=== PATIENT | female | born 1950 | race Caucasian/White ===

== ENCOUNTER 2017-05-02 16:30 | Inpatient (IN) | payer OTHER ==
[~2017-05-02] VITALS: Ht 157.5 cm; Wt 77.1 kg
[2017-05-02 16:39] VITALS: BP_SYST 105
[2017-05-02] MEDS ORDERED: LEVOFLOXACIN 500 MG/D5W 100 ML IV ONE (17:00)
[2017-05-02] MEDS ORDERED: DILTIAZEM HCL 25 MG/5 ML VIAL IVP ONE (17:00)
[2017-05-02] MEDS ORDERED: ALBUTEROL SULFATE 0.083% 2.5 MG/3 ML VIAL.NEB INH ONE (17:00)
[2017-05-02] MEDS ORDERED: AMIN30LI2 PO (17:45)
[2017-05-02] MEDS ORDERED: GLUXR500 PO (17:45)
[2017-05-02] MEDS ORDERED: APIX5TAB PO (17:45)
[2017-05-02] MEDS ORDERED: ALBU2.5V7 INH (17:45)
[2017-05-02] MEDS ORDERED: ACET-1010 PO (17:45)
[2017-05-02] MEDS ORDERED: CYAN250014 PO (17:45)
[2017-05-02] MEDS ORDERED: VITD2000 PO (17:45)
[2017-05-02] MEDS ORDERED: MAGN400O4 PO (17:45)
[2017-05-02] MEDS ORDERED: MULT PO (17:45)
[2017-05-02] MEDS ORDERED: BIOT5000 PO (17:45)
[2017-05-02] MEDS ORDERED: FUROSEMIDE 40 MG/4 ML VIAL IVP ONE (18:00)
[2017-05-02] MEDS ORDERED: DILTIAZEM HCL 125 MG/25 ML VIAL IV ONE (18:13)
[2017-05-02] MEDS ORDERED: MORPHINE 2 MG/ML INJ. SYRINGE ONE (19:09)
[2017-05-02] MEDS ORDERED: DIPHENHYDRAMINE INJ 50 MG/ML VIAL ONE (19:10)
[2017-05-02] MEDS ORDERED: DIPHENHYDRAMINE INJ 50 MG/ML VIAL IVP ONE (19:15)
[2017-05-02] MEDS ORDERED: MORPHINE 2 MG/ML INJ. SYRINGE IVP ONE ×2 (19:15→20:45)
[2017-05-02 20:27] LABS: BILIRUBIN,URINE NEGATIVE (NEGATIVE); BLOOD, URINE 2+ (NEGATIVE); CLARITY/URINE SL CLOUDY (CLEAR); COLOR,URINE YELLOW (YELLOW); GLUCOSE,URINE NEGATIVE (NEGATIVE); KETONES,URINE NEGATIVE (NEGATIVE); LEUKOCYTE ESTERASE ,URINE 2+ (NEGATIVE); NITRITE, URINE NEGATIVE (NEGATIVE); PROTEIN URINE NEGATIVE (NEGATIVE); UROBILINOGEN,URINE 0.2 (0.2-1.0)
[2017-05-02 20:55] LABS: BACTERIA,URINE MANY /HPF (None Seen); CALCIUM OXALATE CRYSTALS,UR 0-10 /HPF (None Seen); WBC,URINE 80-100 /HPF (0-3)
[2017-05-02 20:56] LABS: MUCUS,URINE 2+ /LPF (None Seen)
[2017-05-02 21:11] LABS: HEMATOCRIT 45.2 % (36-48); HEMOGLOBIN 14.9 g/dL (12.0-16.0); MEAN CORPUSCULAR HEMOGLOBIN 33 pg (27-31); MEAN CORPUSCULAR HGB CONC 33 % (32-36); MEAN CORPUSCULAR VOLUME 100 fL (79.0-98.0); PLATELET COUNT (AUTO) 463 K/uL (130-430); RED BLOOD CELL COUNT(AUTO) 4.51 MIL/uL (4.2-6.2); RED CELL DISTRIBUTION WIDTH 19.4 % (9.0-15.0); WHITE BLOOD COUNT (AUTO) 15.9 K/uL (4.8-10.8)
[2017-05-02 21:28] LABS: INR 1.4 (0.8-1.2)
[2017-05-02] MEDS ORDERED: NACL 0.9% 1,000 ML IV ONE ×3 (21:45→23:00)
[2017-05-02 21:55] LABS: BAND % (MANUAL) 4 % (0-6); BASOPHILS % (MANUAL) 0 % (0-2); CALCIUM 9.8 mg/dL (8.4-11.0); CREATININE 0.82 mg/dL (0.55-1.30); EOSINOPHILS % (MANUAL) 1 % (0-7); LYMPHOCYTES % (MANUAL) 2 % (20-46); MONOCYTES % (MANUAL) 3 % (0-11); POTASSIUM 4.2 mmol/L (3.5-5.1)
[2017-05-02 22:09] LABS: ALBUMIN 2.7 g/dL (3.4-4.8); THYROID STIMULATING HORMONE 0.88 uIu/mL (0.34-4.82); TOTAL BILIRUBIN 0.7 mg/dL (0.0-1.0)
[2017-05-02] MEDS ORDERED: ASPIRIN 81 MG TAB.CHEW PO ONE (22:45)
[2017-05-02] MEDS ORDERED: GENTAMICIN 120 mg/100 mL NS 100 ML IV ONE (23:30)
[2017-05-02] MEDS ORDERED: NACL 0.9% 1,000 ML IV SCH (23:30)
[2017-05-02] MEDS ORDERED: DIGOXIN 0.5 MG/2 ML AMP IVP ONE (23:30)
[2017-05-02] MEDS ORDERED: DILTIAZEM HCL 25 MG/5 ML VIAL IVP PRN (23:30)
[2017-05-03] VITALS (9 sets, daily range): BP systolic 106–148
[2017-05-03] MEDS ORDERED: GENTAMICIN 120 mg/100 mL NS 100 ML IV ONE (01:24)
[2017-05-03] MEDS ORDERED: LevALBUTEROL HCL 1.25 MG/0.5 ML *CONC.* VIAL.NEB (XOPENEX CONC.) INH PRN (03:30)
[2017-05-03] MEDS ORDERED: methylPREDNISolone SOD SUCC/PF 62.5 MG/ML VIAL IVP ONE (03:45)
[2017-05-03] MEDS ORDERED: FUROSEMIDE 20 MG/2 ML VIAL IVP ONE (03:45)
[2017-05-03 07:15] LABS: BASOPHILS # (AUTO) 0.2 K/uL (0.0-0.2); EOSINOPHILS # (AUTO) 0.6 K/uL (0.0-0.4); EOSINOPHILS % (AUTO) 2.9 % (0.0-4.0); HEMATOCRIT 41.6 % (36-48); HEMOGLOBIN 14.1 g/dL (12.0-16.0); LYMPHOCYTES # (AUTO) 0.4 K/uL (1.0-5.5); LYMPHOCYTES % (AUTO) 2.3 % (20.5-51.5); MEAN CORPUSCULAR HEMOGLOBIN 34 pg (27-31); MEAN CORPUSCULAR HGB CONC 34 % (32-36); MEAN CORPUSCULAR VOLUME 100 fL (79.0-98.0); MONOCYTES # (AUTO) 0.5 K/uL (0.0-1.0); MONOCYTES % (AUTO) 2.6 % (1.7-9.3); NEUTROPHILS # (AUTO) 17.8 K/uL (1.8-7.7); NEUTROPHILS % (AUTO) 91.2 % (40.0-70.0); PLATELET COUNT (AUTO) 457 K/uL (130-430); RED BLOOD CELL COUNT(AUTO) 4.15 MIL/uL (4.2-6.2); WHITE BLOOD COUNT (AUTO) 19.5 K/uL (4.8-10.8)
[2017-05-03 07:34] LABS: CREATININE 0.58 mg/dL (0.55-1.30)
[2017-05-03 07:35] LABS: ALBUMIN 2.4 g/dL (3.4-4.8); TOTAL BILIRUBIN 0.7 mg/dL (0.0-1.0)
[2017-05-03] MEDS ORDERED: AZITHROMYCIN 500 MG in NS 250 ML IV SCH (10:30)
[2017-05-03] MEDS ORDERED: APIXABAN 2.5 MG TABLET PO ONE (10:30)
[2017-05-03] MEDS ORDERED: DEXTROSE 50% JECT 50 ML DISP.SYRIN IVP PRN (11:00)
[2017-05-03] MEDS ORDERED: LEVOFLOXACIN 500 MG/D5W 100 ML IV ONE (11:00)
[2017-05-03] MEDS: INSULIN REGULAR, HUMAN 100 UNITS/ML, 10 ML VIAL (novoLIN R) SUBCUT PRN ×2 (11:25→16:59)
[2017-05-03] MEDS ORDERED: CARVEDILOL 3.125 MG TABLET (COREG) PO ONE (11:45)
[2017-05-03] MEDS ORDERED: GENTAMICIN SULFATE 160 MG in NS 100 ML IV SCH (12:00)
[2017-05-03] MEDS ORDERED: APIXABAN 2.5 MG TABLET PO SCH (21:00)
[2017-05-03] MEDS: APIXABAN 2.5 MG TABLET PO SCH (21:53)
[2017-05-03] MEDS: CARVEDILOL 3.125 MG TABLET (COREG) PO SCH (21:54)
[2017-05-03] MEDS: metroNIDAZOLE 250 mg/NS 50 ML IV SCH (21:54)
[2017-05-04] VITALS: BP_SYST 136
[2017-05-04] MEDS: metroNIDAZOLE 250 mg/NS 50 ML IV SCH ×3 (05:31→23:29)
[2017-05-04 06:49] LABS: BASOPHILS % (AUTO) 0.4 % (0.0-2.0); HEMATOCRIT 39.3 % (36-48); HEMOGLOBIN 13.2 g/dL (12.0-16.0); LYMPHOCYTES # (AUTO) 0.4 K/uL (1.0-5.5); LYMPHOCYTES % (AUTO) 3.3 % (20.5-51.5); MEAN CORPUSCULAR HEMOGLOBIN 34 pg (27-31); MEAN CORPUSCULAR HGB CONC 34 % (32-36); MEAN CORPUSCULAR VOLUME 100 fL (79.0-98.0); MONOCYTES # (AUTO) 0.3 K/uL (0.0-1.0); MONOCYTES % (AUTO) 2.6 % (1.7-9.3); NEUTROPHILS % (AUTO) 93.7 % (40.0-70.0); RED BLOOD CELL COUNT(AUTO) 3.94 MIL/uL (4.2-6.2); RED CELL DISTRIBUTION WIDTH 19.5 % (9.0-15.0); WHITE BLOOD COUNT (AUTO) 11.7 K/uL (4.8-10.8)
[2017-05-04 07:35] LABS: ALBUMIN 2.3 g/dL (3.4-4.8); CALCIUM 9.1 mg/dL (8.4-11.0); CREATININE 0.54 mg/dL (0.55-1.30); FREE T4 (FREE THYROXINE) 1.1 ng/dL (0.6-1.6); POTASSIUM 3.4 mmol/L (3.5-5.1); TOTAL BILIRUBIN 0.6 mg/dL (0.0-1.0)
[2017-05-04 08:14] VITALS: BP_SYST 135
[2017-05-04] MEDS: APIXABAN 2.5 MG TABLET PO SCH ×2 (08:22→22:01)
[2017-05-04] MEDS: CARVEDILOL 3.125 MG TABLET (COREG) PO SCH ×2 (08:22→22:07)
[2017-05-04] MEDS ORDERED: LEVOFLOXACIN 500 MG/D5W 100 ML IV SCH (09:00)
[2017-05-04 12:02] VITALS: BP_SYST 146
[2017-05-04] MEDS: ACETAMINOPHEN 325 MG TABLET PO PRN (12:08)
[2017-05-04] MEDS ORDERED: PREDNISONE 10 MG TABLET ONE ×2 (12:16→12:31)
[2017-05-04] MEDS ORDERED: PREDNISONE 5 MG TABLET ONE (12:16)
[2017-05-04] MEDS: INSULIN REGULAR, HUMAN 100 UNITS/ML, 10 ML VIAL (novoLIN R) SUBCUT PRN ×3 (12:18→22:47)
[2017-05-04] MEDS: PREDNISONE 10 MG TABLET PO SCH (12:19)
[2017-05-04] MEDS ORDERED: POTASSIUM CHLORIDE 20 MEQ TAB.PRT.SR PO ONE (14:00)
[2017-05-04 14:11] LABS: PLATELET COUNT (AUTO) 460 K/uL (130-430)
[2017-05-04 16:16] VITALS: BP_SYST 159
[2017-05-04] MEDS ORDERED: DILTIAZEM HCL 60 MG TABLET PO ONE (17:15)
[2017-05-04 19:02] LABS: BILIRUBIN,URINE NEGATIVE (NEGATIVE); BLOOD, URINE 3+ (NEGATIVE); CLARITY/URINE CLOUDY (CLEAR); COLOR,URINE BROWN (YELLOW); GLUCOSE,URINE NEGATIVE (NEGATIVE); KETONES,URINE TRACE (NEGATIVE); LEUKOCYTE ESTERASE ,URINE 1+ (NEGATIVE); NITRITE, URINE POSITIVE (NEGATIVE); PH,URINE 6.5 (5.0-8.0); PROTEIN URINE 3+ (NEGATIVE)
[2017-05-04 19:12] LABS: RBC,URINE >100 /HPF (0-3)
[2017-05-04 19:13] LABS: BACTERIA,URINE FEW /HPF (None Seen); WBC,URINE >100 /HPF (0-3)
[2017-05-04 19:40] VITALS: BP_SYST 143
[2017-05-04] MEDS: DILTIAZEM HCL 60 MG TABLET PO SCH (22:05)
[2017-05-04] MEDS ORDERED: CEFEPIME 1 GM/VIAL (MAXIPIME) ONE (22:11)
[2017-05-04] MEDS: CEFEPIME 1 GM in D5W 50 ML IV SCH (22:47)
[2017-05-05 00:22] VITALS: BP_SYST 117
[2017-05-05] MEDS: ACETAMINOPHEN 325 MG TABLET PO PRN (04:22)
[2017-05-05] MEDS: metroNIDAZOLE 250 mg/NS 50 ML IV SCH ×3 (06:20→22:27)
[2017-05-05] MEDS: DILTIAZEM HCL 60 MG TABLET PO SCH ×3 (06:21→21:34)
[2017-05-05 07:25] LABS: BASOPHILS % (AUTO) 0.2 % (0.0-2.0); EOSINOPHILS # (AUTO) 0.1 K/uL (0.0-0.4); EOSINOPHILS % (AUTO) 0.4 % (0.0-4.0); HEMOGLOBIN 12.6 g/dL (12.0-16.0); LYMPHOCYTES # (AUTO) 0.4 K/uL (1.0-5.5); LYMPHOCYTES % (AUTO) 2.9 % (20.5-51.5); MEAN CORPUSCULAR HEMOGLOBIN 33 pg (27-31); MEAN CORPUSCULAR HGB CONC 33 % (32-36); MEAN CORPUSCULAR VOLUME 99 fL (79.0-98.0); MONOCYTES # (AUTO) 0.1 K/uL (0.0-1.0); MONOCYTES % (AUTO) 0.5 % (1.7-9.3); NEUTROPHILS # (AUTO) 12.5 K/uL (1.8-7.7); PLATELET COUNT (AUTO) 466 K/uL (130-430); RED BLOOD CELL COUNT(AUTO) 3.83 MIL/uL (4.2-6.2); RED CELL DISTRIBUTION WIDTH 19.7 % (9.0-15.0); WHITE BLOOD COUNT (AUTO) 13.1 K/uL (4.8-10.8)
[2017-05-05 07:28] LABS: CALCIUM 9.6 mg/dL (8.4-11.0); CREATININE 0.48 mg/dL (0.55-1.30); POTASSIUM 3.7 mmol/L (3.5-5.1)
[2017-05-05 09:25] VITALS: BP_SYST 147
[2017-05-05] MEDS: APIXABAN 2.5 MG TABLET PO SCH ×2 (09:29→21:34)
[2017-05-05] MEDS: PREDNISONE 10 MG TABLET PO SCH (09:29)
[2017-05-05] MEDS: CARVEDILOL 3.125 MG TABLET (COREG) PO SCH ×2 (09:30→21:33)
[2017-05-05] MEDS: CEFEPIME 1 GM in D5W 50 ML IV SCH (09:31)
[2017-05-05] MEDS: INSULIN REGULAR, HUMAN 100 UNITS/ML, 10 ML VIAL (novoLIN R) SUBCUT PRN ×2 (11:52→17:17)
[2017-05-05 11:58] VITALS: BP_SYST 129
[2017-05-05 16:33] VITALS: BP_SYST 122
[2017-05-05] MEDS: CEFTAZIDIME 1 GM in D5W 50 ML IV SCH ×2 (18:45→21:32)
[2017-05-05 20:02] VITALS: BP_SYST 126
[2017-05-06] VITALS (7 sets, daily range): BP systolic 126–148
[2017-05-06] MEDS: ACETAMINOPHEN 325 MG TABLET PO PRN ×3 (02:12→22:13)
[2017-05-06] MEDS: DILTIAZEM HCL 60 MG TABLET PO SCH ×3 (05:17→22:11)
[2017-05-06] MEDS: CEFTAZIDIME 1 GM in D5W 50 ML IV SCH ×3 (05:18→22:10)
[2017-05-06] MEDS: metroNIDAZOLE 250 mg/NS 50 ML IV SCH (05:53)
[2017-05-06 07:02] LABS: BASOPHILS % (AUTO) 0.1 % (0.0-2.0); EOSINOPHILS # (AUTO) 0.6 K/uL (0.0-0.4); HEMATOCRIT 37.1 % (36-48); HEMOGLOBIN 12.6 g/dL (12.0-16.0); LYMPHOCYTES # (AUTO) 0.8 K/uL (1.0-5.5); LYMPHOCYTES % (AUTO) 6.1 % (20.5-51.5); MEAN CORPUSCULAR HEMOGLOBIN 34 pg (27-31); MEAN CORPUSCULAR HGB CONC 34 % (32-36); MEAN CORPUSCULAR VOLUME 99 fL (79.0-98.0); MONOCYTES # (AUTO) 0.1 K/uL (0.0-1.0); NEUTROPHILS # (AUTO) 11.2 K/uL (1.8-7.7); NEUTROPHILS % (AUTO) 87.8 % (40.0-70.0); PLATELET COUNT (AUTO) 430 K/uL (130-430); RED BLOOD CELL COUNT(AUTO) 3.77 MIL/uL (4.2-6.2); RED CELL DISTRIBUTION WIDTH 19.5 % (9.0-15.0); WHITE BLOOD COUNT (AUTO) 12.7 K/uL (4.8-10.8)
[2017-05-06 07:09] LABS: CALCIUM 9.8 mg/dL (8.4-11.0); CREATININE 0.51 mg/dL (0.55-1.30); POTASSIUM 3.6 mmol/L (3.5-5.1)
[2017-05-06] MEDS: PREDNISONE 10 MG TABLET PO SCH (08:26)
[2017-05-06] MEDS: APIXABAN 2.5 MG TABLET PO SCH ×2 (08:26→20:16)
[2017-05-06] MEDS: CARVEDILOL 3.125 MG TABLET (COREG) PO SCH ×2 (08:27→20:16)
[2017-05-06] MEDS: INSULIN REGULAR, HUMAN 100 UNITS/ML, 10 ML VIAL (novoLIN R) SUBCUT PRN ×2 (17:13→20:23)
[2017-05-07] MEDS: CEFTAZIDIME 1 GM in D5W 50 ML IV SCH ×3 (06:09→21:36)
[2017-05-07] MEDS: DILTIAZEM HCL 60 MG TABLET PO SCH ×3 (06:16→21:35)
[2017-05-07 09:20] VITALS: BP_SYST 141
[2017-05-07] MEDS: CARVEDILOL 3.125 MG TABLET (COREG) PO SCH ×2 (09:24→21:34)
[2017-05-07] MEDS: PREDNISONE 10 MG TABLET PO SCH (09:24)
[2017-05-07] MEDS: APIXABAN 2.5 MG TABLET PO SCH ×2 (09:24→21:32)
[2017-05-07 12:00] VITALS: BP_SYST 130
[2017-05-07 16:00] VITALS: BP_SYST 131
[2017-05-07] MEDS: INSULIN REGULAR, HUMAN 100 UNITS/ML, 10 ML VIAL (novoLIN R) SUBCUT PRN (17:40)
[2017-05-07 20:10] VITALS: BP_SYST 158
[2017-05-07] MEDS: CITALOPRAM HYDROBROMIDE 20 MG TABLET PO SCH (21:00)
[2017-05-07 23:39] VITALS: BP_SYST 143
[2017-05-08] MEDS: ACETAMINOPHEN 325 MG TABLET PO PRN ×2 (01:03→08:57)
[2017-05-08] MEDS: CEFTAZIDIME 1 GM in D5W 50 ML IV SCH ×3 (05:58→22:09)
[2017-05-08] MEDS: DILTIAZEM HCL 60 MG TABLET PO SCH ×3 (06:00→20:17)
[2017-05-08 07:52] LABS: HEMATOCRIT 38.8 % (36-48); HEMOGLOBIN 12.7 g/dL (12.0-16.0); MEAN CORPUSCULAR HEMOGLOBIN 32 pg (27-31); MEAN CORPUSCULAR HGB CONC 33 % (32-36); MEAN CORPUSCULAR VOLUME 98 fL (79.0-98.0); PLATELET COUNT (AUTO) 404 K/uL (130-430); RED BLOOD CELL COUNT(AUTO) 3.95 MIL/uL (4.2-6.2); RED CELL DISTRIBUTION WIDTH 19.2 % (9.0-15.0)
[2017-05-08 08:00] VITALS: BP_SYST 137
[2017-05-08 08:08] LABS: CALCIUM 9.6 mg/dL (8.4-11.0); CREATININE 0.54 mg/dL (0.55-1.30)
[2017-05-08 08:17] LABS: POTASSIUM 2.8 mmol/L (3.5-5.1); TOTAL BILIRUBIN 0.6 mg/dL (0.0-1.0)
[2017-05-08 08:18] LABS: ALBUMIN 2.1 g/dL (3.4-4.8)
[2017-05-08] MEDS: APIXABAN 2.5 MG TABLET PO SCH ×2 (08:54→20:16)
[2017-05-08] MEDS: PREDNISONE 10 MG TABLET PO SCH (08:54)
[2017-05-08] MEDS: CARVEDILOL 3.125 MG TABLET (COREG) PO SCH (08:55)
[2017-05-08] MEDS ORDERED: POTASSIUM CHLORIDE 20 MEQ TAB.PRT.SR PO ONE (09:15)
[2017-05-08] MEDS ORDERED: POTASSIUM CHLORIDE 40 MEQ, LIDOCAINE JECT 2% PF 100 MG 50 MG in NS 250 ML IV ONE (10:00)
[2017-05-08 10:34] LABS: BASOPHILS % (MANUAL) 0 % (0-2); EOSINOPHILS % (MANUAL) 9 % (0-7); LYMPHOCYTES % (MANUAL) 6 % (20-46); MONOCYTES % (MANUAL) 3 % (0-11)
[2017-05-08] MEDS ORDERED: FUROSEMIDE 20 MG/2 ML VIAL IVP ONE (11:45)
[2017-05-08 12:50] VITALS: BP_SYST 123
[2017-05-08 17:14] VITALS: BP_SYST 119
[2017-05-08] MEDS ORDERED: FUROSEMIDE 40 MG/4 ML VIAL IVP ONE (17:30)
[2017-05-08] MEDS: VANCOMYCIN HCL 1,000 MG in NS 250 ML IV SCH (17:51)
[2017-05-08] MEDS: INSULIN REGULAR, HUMAN 100 UNITS/ML, 10 ML VIAL (novoLIN R) SUBCUT PRN ×2 (17:54→20:14)
[2017-05-08 20:00] VITALS: BP_SYST 146
[2017-05-08] MEDS: POTASSIUM CHLORIDE 20 MEQ TAB.PRT.SR PO SCH (20:16)
[2017-05-08] MEDS: CARVEDILOL 12.5 MG TABLET (COREG) PO SCH (20:17)
[2017-05-08] MEDS: CITALOPRAM HYDROBROMIDE 20 MG TABLET PO SCH (20:18)
[2017-05-08] MEDS: metroNIDAZOLE 250 mg/NS 50 ML IV SCH (21:05)
[2017-05-08 23:34] VITALS: BP_SYST 113
[2017-05-09] MEDS: DILTIAZEM HCL 60 MG TABLET PO SCH ×4 (02:02→20:36)
[2017-05-09] MEDS: CEFTAZIDIME 1 GM in D5W 50 ML IV SCH ×3 (05:02→21:37)
[2017-05-09] MEDS: metroNIDAZOLE 250 mg/NS 50 ML IV SCH ×3 (05:29→22:09)
[2017-05-09] MEDS: VANCOMYCIN HCL 1,000 MG in NS 250 ML IV SCH ×2 (06:35→18:24)
[2017-05-09 07:22] LABS: BASOPHILS % (AUTO) 0.2 % (0.0-2.0); EOSINOPHILS # (AUTO) 1.4 K/uL (0.0-0.4); EOSINOPHILS % (AUTO) 6.2 % (0.0-4.0); HEMATOCRIT 40.6 % (36-48); HEMOGLOBIN 13.3 g/dL (12.0-16.0); LYMPHOCYTES % (AUTO) 4.4 % (20.5-51.5); MEAN CORPUSCULAR HEMOGLOBIN 33 pg (27-31); MEAN CORPUSCULAR HGB CONC 33 % (32-36); MEAN CORPUSCULAR VOLUME 100 fL (79.0-98.0); MONOCYTES # (AUTO) 1.1 K/uL (0.0-1.0); MONOCYTES % (AUTO) 5.1 % (1.7-9.3); NEUTROPHILS # (AUTO) 18.5 K/uL (1.8-7.7); NEUTROPHILS % (AUTO) 84.1 % (40.0-70.0); PLATELET COUNT (AUTO) 403 K/uL (130-430); RED BLOOD CELL COUNT(AUTO) 4.08 MIL/uL (4.2-6.2); RED CELL DISTRIBUTION WIDTH 19.4 % (9.0-15.0)
[2017-05-09 07:29] LABS: CALCIUM 9.7 mg/dL (8.4-11.0); CREATININE 0.48 mg/dL (0.55-1.30); POTASSIUM 3.7 mmol/L (3.5-5.1)
[2017-05-09 08:00] VITALS: BP_SYST 131
[2017-05-09] MEDS: POTASSIUM CHLORIDE 20 MEQ TAB.PRT.SR PO SCH ×2 (08:10→20:37)
[2017-05-09] MEDS: CARVEDILOL 12.5 MG TABLET (COREG) PO SCH ×2 (08:11→20:37)
[2017-05-09] MEDS: APIXABAN 2.5 MG TABLET PO SCH ×2 (08:11→20:37)
[2017-05-09] MEDS: PREDNISONE 10 MG TABLET PO SCH (08:11)
[2017-05-09] MEDS: INSULIN REGULAR, HUMAN 100 UNITS/ML, 10 ML VIAL (novoLIN R) SUBCUT PRN ×3 (11:38→21:36)
[2017-05-09 12:24] VITALS: BP_SYST 120
[2017-05-09] MEDS ORDERED: FUROSEMIDE 20 MG TABLET PO ONE (13:15)
[2017-05-09] MEDS ORDERED: DIGOXIN 0.5 MG/2 ML AMP IVP ONE (15:00)
[2017-05-09 16:31] VITALS: BP_SYST 133
[2017-05-09 18:23] VITALS: BP_SYST 133
[2017-05-09 20:22] VITALS: BP_SYST 129
[2017-05-09] MEDS: ACETAMINOPHEN 325 MG TABLET PO PRN (20:38)
[2017-05-09] MEDS: CITALOPRAM HYDROBROMIDE 20 MG TABLET PO SCH (20:39)
[2017-05-09 23:50] VITALS: BP_SYST 126
[2017-05-10] MEDS: DILTIAZEM HCL 60 MG TABLET PO SCH ×4 (02:27→20:14)
[2017-05-10] MEDS: CEFTAZIDIME 1 GM in D5W 50 ML IV SCH ×3 (05:05→21:35)
[2017-05-10] MEDS: metroNIDAZOLE 250 mg/NS 50 ML IV SCH ×2 (06:09→16:57)
[2017-05-10] MEDS: ACETAMINOPHEN 325 MG TABLET PO PRN ×2 (06:43→15:15)
[2017-05-10 07:22] LABS: CALCIUM 10.4 mg/dL (8.4-11.0); CREATININE 0.67 mg/dL (0.55-1.30); POTASSIUM 3.6 mmol/L (3.5-5.1)
[2017-05-10 07:31] LABS: HEMATOCRIT 42.9 % (36-48); HEMOGLOBIN 14.3 g/dL (12.0-16.0); MEAN CORPUSCULAR HEMOGLOBIN 33 pg (27-31); MEAN CORPUSCULAR HGB CONC 33 % (32-36); MEAN CORPUSCULAR VOLUME 99 fL (79.0-98.0); PLATELET COUNT (AUTO) 467 K/uL (130-430); RED BLOOD CELL COUNT(AUTO) 4.34 MIL/uL (4.2-6.2); RED CELL DISTRIBUTION WIDTH 18.9 % (9.0-15.0)
[2017-05-10] MEDS: VANCOMYCIN HCL 1,000 MG in NS 250 ML IV SCH ×2 (07:31→17:37)
[2017-05-10 07:40] LABS: WHITE BLOOD COUNT (AUTO) 28.4 K/uL (4.8-10.8)
[2017-05-10 08:56] VITALS: BP_SYST 166
[2017-05-10] MEDS ORDERED: FUROSEMIDE 20 MG TABLET PO SCH (09:00)
[2017-05-10] MEDS: APIXABAN 2.5 MG TABLET PO SCH ×2 (09:04→20:13)
[2017-05-10] MEDS: PREDNISONE 10 MG TABLET PO SCH (09:04)
[2017-05-10] MEDS: POTASSIUM CHLORIDE 20 MEQ TAB.PRT.SR PO SCH ×2 (09:04→20:13)
[2017-05-10] MEDS: DIGOXIN 0.125 MG TABLET PO SCH (09:07)
[2017-05-10] MEDS: CARVEDILOL 12.5 MG TABLET (COREG) PO SCH ×2 (09:07→20:13)
[2017-05-10 10:23] LABS: ATYPICAL LYMPHOCYTES % 0 % (0-0); BAND % (MANUAL) 0 % (0-6); BASOPHILS % (MANUAL) 0 % (0-2); EOSINOPHILS % (MANUAL) 6 % (0-7); LYMPHOCYTES % (MANUAL) 8 % (20-46); MONOCYTES % (MANUAL) 4 % (0-11)
[2017-05-10 12:15] VITALS: BP_SYST 122
[2017-05-10] MEDS ORDERED: SPIRONOLACTONE 25 MG TABLET (ALDACTONE) PO ONE (14:45)
[2017-05-10 16:02] VITALS: BP_SYST 114
[2017-05-10] MEDS: INSULIN REGULAR, HUMAN 100 UNITS/ML, 10 ML VIAL (novoLIN R) SUBCUT PRN (17:34)
[2017-05-10 20:10] VITALS: BP_SYST 114
[2017-05-10] MEDS: FUROSEMIDE 20 MG TABLET PO SCH (20:14)
[2017-05-10] MEDS: CITALOPRAM HYDROBROMIDE 20 MG TABLET PO SCH (20:15)
[2017-05-10] MEDS: SPIRONOLACTONE 25 MG TABLET (ALDACTONE) PO SCH (20:15)
[2017-05-11] MEDS: metroNIDAZOLE 250 mg/NS 50 ML IV SCH ×3 (00:21→16:25)
[2017-05-11 01:08] VITALS: BP_SYST 111
[2017-05-11] MEDS: DILTIAZEM HCL 60 MG TABLET PO SCH ×4 (01:33→20:41)
[2017-05-11] MEDS: ACETAMINOPHEN 325 MG TABLET PO PRN ×3 (03:33→20:43)
[2017-05-11] MEDS: CEFTAZIDIME 1 GM in D5W 50 ML IV SCH ×3 (05:27→21:18)
[2017-05-11] MEDS: VANCOMYCIN HCL 1,000 MG in NS 250 ML IV SCH ×2 (06:08→17:25)
[2017-05-11 07:22] LABS: BASOPHILS # (AUTO) 0.4 K/uL (0.0-0.2); BASOPHILS % (AUTO) 1.5 % (0.0-2.0); EOSINOPHILS # (AUTO) 1.7 K/uL (0.0-0.4); EOSINOPHILS % (AUTO) 6.6 % (0.0-4.0); HEMATOCRIT 40.6 % (36-48); HEMOGLOBIN 13.9 g/dL (12.0-16.0); MEAN CORPUSCULAR HEMOGLOBIN 34 pg (27-31); MEAN CORPUSCULAR HGB CONC 34 % (32-36); MEAN CORPUSCULAR VOLUME 99 fL (79.0-98.0); MONOCYTES % (AUTO) 7.8 % (1.7-9.3); NEUTROPHILS % (AUTO) 80.1 % (40.0-70.0); PLATELET COUNT (AUTO) 449 K/uL (130-430); RED BLOOD CELL COUNT(AUTO) 4.12 MIL/uL (4.2-6.2); RED CELL DISTRIBUTION WIDTH 18.9 % (9.0-15.0); WHITE BLOOD COUNT (AUTO) 25.1 K/uL (4.8-10.8)
[2017-05-11 07:37] LABS: CALCIUM 10.4 mg/dL (8.4-11.0); CREATININE 0.66 mg/dL (0.55-1.30); POTASSIUM 3.5 mmol/L (3.5-5.1)
[2017-05-11 08:00] VITALS: BP_SYST 121
[2017-05-11] MEDS: PREDNISONE 10 MG TABLET PO SCH (08:41)
[2017-05-11] MEDS: POTASSIUM CHLORIDE 20 MEQ TAB.PRT.SR PO SCH ×2 (08:42→20:41)
[2017-05-11] MEDS: DIGOXIN 0.125 MG TABLET PO SCH (08:46)
[2017-05-11] MEDS: APIXABAN 2.5 MG TABLET PO SCH ×2 (08:46→20:41)
[2017-05-11] MEDS: SPIRONOLACTONE 25 MG TABLET (ALDACTONE) PO SCH (08:47)
[2017-05-11] MEDS: FUROSEMIDE 20 MG TABLET PO SCH ×2 (08:48→20:42)
[2017-05-11] MEDS: CARVEDILOL 12.5 MG TABLET (COREG) PO SCH ×2 (08:48→20:41)
[2017-05-11 12:40] VITALS: BP_SYST 138
[2017-05-11] MEDS: INSULIN REGULAR, HUMAN 100 UNITS/ML, 10 ML VIAL (novoLIN R) SUBCUT PRN (16:24)
[2017-05-11 17:06] VITALS: BP_SYST 126
[2017-05-11 20:37] VITALS: BP_SYST 167
[2017-05-11] MEDS: SPIRONOLACTONE 50 MG TABLET (ALDACTONE) PO SCH (20:42)
[2017-05-11] MEDS: CITALOPRAM HYDROBROMIDE 20 MG TABLET PO SCH (20:44)
[2017-05-12 00:03] VITALS: BP_SYST 105
[2017-05-12] MEDS: metroNIDAZOLE 250 mg/NS 50 ML IV SCH ×3 (00:24→17:00)
[2017-05-12] MEDS: DILTIAZEM HCL 60 MG TABLET PO SCH ×4 (02:07→20:36)
[2017-05-12] MEDS: CEFTAZIDIME 1 GM in D5W 50 ML IV SCH ×2 (05:33→13:49)
[2017-05-12] MEDS: ACETAMINOPHEN 325 MG TABLET PO PRN ×4 (05:38→23:50)
[2017-05-12] MEDS: VANCOMYCIN HCL 1,000 MG in NS 250 ML IV SCH (06:08)
[2017-05-12 07:09] LABS: CALCIUM 10.7 mg/dL (8.4-11.0); CREATININE 0.67 mg/dL (0.55-1.30); POTASSIUM 4.3 mmol/L (3.5-5.1)
[2017-05-12 07:15] LABS: BASOPHILS # (AUTO) 0.2 K/uL (0.0-0.2); BASOPHILS % (AUTO) 1.1 % (0.0-2.0); EOSINOPHILS # (AUTO) 1.3 K/uL (0.0-0.4); EOSINOPHILS % (AUTO) 5.8 % (0.0-4.0); HEMATOCRIT 42.4 % (36-48); HEMOGLOBIN 14.3 g/dL (12.0-16.0); LYMPHOCYTES # (AUTO) 0.8 K/uL (1.0-5.5); LYMPHOCYTES % (AUTO) 3.7 % (20.5-51.5); MEAN CORPUSCULAR HEMOGLOBIN 33 pg (27-31); MEAN CORPUSCULAR HGB CONC 34 % (32-36); MEAN CORPUSCULAR VOLUME 98 fL (79.0-98.0); MONOCYTES # (AUTO) 1.7 K/uL (0.0-1.0); MONOCYTES % (AUTO) 7.5 % (1.7-9.3); NEUTROPHILS # (AUTO) 18.6 K/uL (1.8-7.7); NEUTROPHILS % (AUTO) 81.9 % (40.0-70.0); PLATELET COUNT (AUTO) 473 K/uL (130-430); RED BLOOD CELL COUNT(AUTO) 4.32 MIL/uL (4.2-6.2); RED CELL DISTRIBUTION WIDTH 18.9 % (9.0-15.0); WHITE BLOOD COUNT (AUTO) 22.6 K/uL (4.8-10.8)
[2017-05-12 08:00] VITALS: BP_SYST 143
[2017-05-12] MEDS: POTASSIUM CHLORIDE 20 MEQ TAB.PRT.SR PO SCH ×2 (08:37→20:32)
[2017-05-12] MEDS: DIGOXIN 0.125 MG TABLET PO SCH (08:37)
[2017-05-12] MEDS: APIXABAN 2.5 MG TABLET PO SCH ×2 (08:37→20:32)
[2017-05-12] MEDS: PREDNISONE 10 MG TABLET PO SCH (08:38)
[2017-05-12] MEDS: CARVEDILOL 12.5 MG TABLET (COREG) PO SCH ×2 (08:38→20:35)
[2017-05-12] MEDS: SPIRONOLACTONE 50 MG TABLET (ALDACTONE) PO SCH ×2 (08:39→20:36)
[2017-05-12] MEDS: FUROSEMIDE 20 MG TABLET PO SCH ×2 (08:39→20:33)
[2017-05-12 12:00] VITALS: BP_SYST 113
[2017-05-12] MEDS: FLUTICASONE PROPIONATE 50 mCg/SPRAY 16 GM NS SCH (13:48)
[2017-05-12] MEDS ORDERED: MENTHOL/ZINC OXIDE 113 GM OINT. TP PRN (14:45)
[2017-05-12] MEDS: MENTHOL/ZINC OXIDE 113 GM OINT. TP SCH ×3 (15:20→20:38)
[2017-05-12] MEDS: BALSAM PERU/CASTOR OIL 60 GM OINT...G. TP SCH (15:20)
[2017-05-12 16:09] VITALS: BP_SYST 112
[2017-05-12] MEDS: INSULIN REGULAR, HUMAN 100 UNITS/ML, 10 ML VIAL (novoLIN R) SUBCUT PRN (17:53)
[2017-05-12 20:14] VITALS: BP_SYST 142
[2017-05-12] MEDS: CITALOPRAM HYDROBROMIDE 20 MG TABLET PO SCH ×2 (20:33→21:00)
[2017-05-12] MEDS: MEROPENEM 1 GM in NS 100 ML IV SCH (21:28)
[2017-05-13] MEDS: metroNIDAZOLE 250 mg/NS 50 ML IV SCH ×4 (01:25→17:14)
[2017-05-13] MEDS: DILTIAZEM HCL 60 MG TABLET PO SCH ×4 (01:27→20:06)
[2017-05-13 02:37] VITALS: BP_SYST 113
[2017-05-13] MEDS: MEROPENEM 1 GM in NS 100 ML IV SCH ×3 (06:14→21:26)
[2017-05-13 07:34] LABS: BASOPHILS # (AUTO) 0.3 K/uL (0.0-0.2); BASOPHILS % (AUTO) 1.3 % (0.0-2.0); EOSINOPHILS # (AUTO) 0.9 K/uL (0.0-0.4); EOSINOPHILS % (AUTO) 4.1 % (0.0-4.0); HEMATOCRIT 41.8 % (36-48); HEMOGLOBIN 13.9 g/dL (12.0-16.0); LYMPHOCYTES # (AUTO) 0.9 K/uL (1.0-5.5); LYMPHOCYTES % (AUTO) 4.1 % (20.5-51.5); MEAN CORPUSCULAR HEMOGLOBIN 33 pg (27-31); MEAN CORPUSCULAR HGB CONC 33 % (32-36); MEAN CORPUSCULAR VOLUME 98 fL (79.0-98.0); MONOCYTES # (AUTO) 1.6 K/uL (0.0-1.0); MONOCYTES % (AUTO) 7.6 % (1.7-9.3); NEUTROPHILS # (AUTO) 17.4 K/uL (1.8-7.7); NEUTROPHILS % (AUTO) 82.9 % (40.0-70.0); PLATELET COUNT (AUTO) 433 K/uL (130-430); RED BLOOD CELL COUNT(AUTO) 4.28 MIL/uL (4.2-6.2); WHITE BLOOD COUNT (AUTO) 21.1 K/uL (4.8-10.8)
[2017-05-13 07:48] LABS: CALCIUM 11.1 mg/dL (8.4-11.0); CREATININE 0.74 mg/dL (0.55-1.30); POTASSIUM 3.3 mmol/L (3.5-5.1)
[2017-05-13 08:00] VITALS: BP_SYST 136
[2017-05-13] MEDS: SPIRONOLACTONE 50 MG TABLET (ALDACTONE) PO SCH ×2 (08:36→21:19)
[2017-05-13] MEDS: FLUTICASONE PROPIONATE 50 mCg/SPRAY 16 GM NS SCH (08:36)
[2017-05-13] MEDS: FUROSEMIDE 20 MG TABLET PO SCH ×2 (08:37→21:24)
[2017-05-13] MEDS: MENTHOL/ZINC OXIDE 113 GM OINT. TP SCH ×4 (08:37→21:25)
[2017-05-13] MEDS: DIGOXIN 0.125 MG TABLET PO SCH (08:37)
[2017-05-13] MEDS: CARVEDILOL 12.5 MG TABLET (COREG) PO SCH ×2 (08:37→21:26)
[2017-05-13] MEDS: POTASSIUM CHLORIDE 20 MEQ TAB.PRT.SR PO SCH ×2 (08:37→21:24)
[2017-05-13] MEDS: APIXABAN 2.5 MG TABLET PO SCH ×2 (08:37→21:23)
[2017-05-13] MEDS: PREDNISONE 10 MG TABLET PO SCH (08:37)
[2017-05-13] MEDS: BALSAM PERU/CASTOR OIL 60 GM OINT...G. TP SCH (08:38)
[2017-05-13 10:34] VITALS: BP_SYST 136
[2017-05-13 12:57] VITALS: BP_SYST 108
[2017-05-13] MEDS ORDERED: PHENYLEPHRINE HCL 1% NASAL 15 ML NASPR NS PRN (16:00)
[2017-05-13 16:06] VITALS: BP_SYST 116
[2017-05-13] MEDS ORDERED: FLUCONAZOLE 200 mg/ NS 100 ML IV ONE (17:00)
[2017-05-13 20:30] VITALS: BP_SYST 117
[2017-05-13] MEDS: CITALOPRAM HYDROBROMIDE 20 MG TABLET PO SCH (21:00)
[2017-05-13] MEDS: INSULIN REGULAR, HUMAN 100 UNITS/ML, 10 ML VIAL (novoLIN R) SUBCUT PRN (21:28)
[2017-05-13] MEDS: ACETAMINOPHEN 325 MG TABLET PO PRN (22:51)
[2017-05-14] MEDS: metroNIDAZOLE 250 mg/NS 50 ML IV SCH ×3 (00:02→17:27)
[2017-05-14] MEDS: DILTIAZEM HCL 60 MG TABLET PO SCH ×4 (01:13→20:55)
[2017-05-14 03:27] VITALS: BP_SYST 114
[2017-05-14] MEDS: MEROPENEM 1 GM in NS 100 ML IV SCH ×3 (05:32→22:13)
[2017-05-14 07:01] LABS: BASOPHILS # (AUTO) 0.1 K/uL (0.0-0.2); BASOPHILS % (AUTO) 0.5 % (0.0-2.0); EOSINOPHILS # (AUTO) 0.5 K/uL (0.0-0.4); EOSINOPHILS % (AUTO) 2.1 % (0.0-4.0); HEMOGLOBIN 13.6 g/dL (12.0-16.0); LYMPHOCYTES % (AUTO) 4.5 % (20.5-51.5); MEAN CORPUSCULAR HEMOGLOBIN 33 pg (27-31); MEAN CORPUSCULAR HGB CONC 33 % (32-36); MEAN CORPUSCULAR VOLUME 98 fL (79.0-98.0); MONOCYTES % (AUTO) 8.6 % (1.7-9.3); NEUTROPHILS # (AUTO) 19.4 K/uL (1.8-7.7); NEUTROPHILS % (AUTO) 84.3 % (40.0-70.0); PLATELET COUNT (AUTO) 403 K/uL (130-430); RED BLOOD CELL COUNT(AUTO) 4.17 MIL/uL (4.2-6.2); RED CELL DISTRIBUTION WIDTH 19.3 % (9.0-15.0)
[2017-05-14 07:38] LABS: CALCIUM 11.4 mg/dL (8.4-11.0); CREATININE 0.7 mg/dL (0.55-1.30); POTASSIUM 4.1 mmol/L (3.5-5.1)
[2017-05-14 08:28] VITALS: BP_SYST 123
[2017-05-14] MEDS: MENTHOL/ZINC OXIDE 113 GM OINT. TP SCH ×4 (09:00→20:57)
[2017-05-14] MEDS: FLUTICASONE PROPIONATE 50 mCg/SPRAY 16 GM NS SCH (09:00)
[2017-05-14] MEDS: BALSAM PERU/CASTOR OIL 60 GM OINT...G. TP SCH (09:00)
[2017-05-14] MEDS: DIGOXIN 0.125 MG TABLET PO SCH (09:13)
[2017-05-14] MEDS: POTASSIUM CHLORIDE 20 MEQ TAB.PRT.SR PO SCH ×2 (09:14→20:56)
[2017-05-14] MEDS: PREDNISONE 10 MG TABLET PO SCH (09:14)
[2017-05-14] MEDS: CARVEDILOL 12.5 MG TABLET (COREG) PO SCH ×2 (09:15→20:56)
[2017-05-14] MEDS: SPIRONOLACTONE 50 MG TABLET (ALDACTONE) PO SCH ×2 (09:15→20:55)
[2017-05-14] MEDS: APIXABAN 2.5 MG TABLET PO SCH ×2 (09:16→20:56)
[2017-05-14] MEDS: FUROSEMIDE 20 MG TABLET PO SCH ×2 (09:16→20:56)
[2017-05-14] MEDS: ACETAMINOPHEN 325 MG TABLET PO PRN (10:45)
[2017-05-14 16:42] VITALS: BP_SYST 127
[2017-05-14 20:00] VITALS: BP_SYST 152
[2017-05-14] MEDS: FLUCONAZOLE 200 mg/ NS 100 ML IV SCH (20:47)
[2017-05-14] MEDS: INSULIN REGULAR, HUMAN 100 UNITS/ML, 10 ML VIAL (novoLIN R) SUBCUT PRN (20:54)
[2017-05-14] MEDS: CITALOPRAM HYDROBROMIDE 20 MG TABLET PO SCH (20:55)
[2017-05-15] MEDS: metroNIDAZOLE 250 mg/NS 50 ML IV SCH ×3 (01:26→17:25)
[2017-05-15 01:38] VITALS: BP_SYST 146
[2017-05-15] MEDS: DILTIAZEM HCL 60 MG TABLET PO SCH ×4 (02:11→22:25)
[2017-05-15] MEDS: MEROPENEM 1 GM in NS 100 ML IV SCH ×3 (06:20→21:55)
[2017-05-15 07:44] LABS: CALCIUM 12.4 mg/dL (8.4-11.0); CREATININE 0.8 mg/dL (0.55-1.30); POTASSIUM 4.6 mmol/L (3.5-5.1)
[2017-05-15 07:45] LABS: BASOPHILS # (AUTO) 0.1 K/uL (0.0-0.2); BASOPHILS % (AUTO) 0.2 % (0.0-2.0); EOSINOPHILS # (AUTO) 0.9 K/uL (0.0-0.4); EOSINOPHILS % (AUTO) 3.5 % (0.0-4.0); HEMATOCRIT 42.4 % (36-48); HEMOGLOBIN 14.7 g/dL (12.0-16.0); LYMPHOCYTES # (AUTO) 1.5 K/uL (1.0-5.5); LYMPHOCYTES % (AUTO) 5.4 % (20.5-51.5); MEAN CORPUSCULAR HEMOGLOBIN 34 pg (27-31); MEAN CORPUSCULAR HGB CONC 35 % (32-36); MEAN CORPUSCULAR VOLUME 97 fL (79.0-98.0); MONOCYTES # (AUTO) 2.2 K/uL (0.0-1.0); MONOCYTES % (AUTO) 8.3 % (1.7-9.3); NEUTROPHILS # (AUTO) 22.3 K/uL (1.8-7.7); PLATELET COUNT (AUTO) 465 K/uL (130-430); RED BLOOD CELL COUNT(AUTO) 4.39 MIL/uL (4.2-6.2); RED CELL DISTRIBUTION WIDTH 18.7 % (9.0-15.0)
[2017-05-15 08:10] VITALS: BP_SYST 143
[2017-05-15] MEDS: MENTHOL/ZINC OXIDE 113 GM OINT. TP SCH ×4 (08:12→22:29)
[2017-05-15] MEDS: FLUTICASONE PROPIONATE 50 mCg/SPRAY 16 GM NS SCH (08:12)
[2017-05-15] MEDS: SPIRONOLACTONE 50 MG TABLET (ALDACTONE) PO SCH ×2 (08:12→22:26)
[2017-05-15] MEDS: DIGOXIN 0.125 MG TABLET PO SCH (08:13)
[2017-05-15] MEDS: POTASSIUM CHLORIDE 20 MEQ TAB.PRT.SR PO SCH (08:13)
[2017-05-15] MEDS: PREDNISONE 10 MG TABLET PO SCH (08:13)
[2017-05-15] MEDS: APIXABAN 2.5 MG TABLET PO SCH ×2 (08:13→22:27)
[2017-05-15] MEDS: FUROSEMIDE 20 MG TABLET PO SCH ×2 (08:14→22:28)
[2017-05-15] MEDS: CARVEDILOL 12.5 MG TABLET (COREG) PO SCH ×2 (08:14→22:27)
[2017-05-15] MEDS: ACETAMINOPHEN 325 MG TABLET PO PRN ×2 (08:14→14:27)
[2017-05-15] MEDS: BALSAM PERU/CASTOR OIL 60 GM OINT...G. TP SCH (08:15)
[2017-05-15 11:43] LABS: NEUTROPHILS % (AUTO) 82.6 % (40.0-70.0)
[2017-05-15 12:47] VITALS: BP_SYST 112
[2017-05-15 16:29] VITALS: BP_SYST 118
[2017-05-15] MEDS: INSULIN REGULAR, HUMAN 100 UNITS/ML, 10 ML VIAL (novoLIN R) SUBCUT PRN (17:27)
[2017-05-15 19:00] VITALS: BP_SYST 115
[2017-05-15 20:00] VITALS: BP_SYST 115
[2017-05-15] MEDS: CITALOPRAM HYDROBROMIDE 20 MG TABLET PO SCH (21:00)
[2017-05-15] MEDS: FLUCONAZOLE 200 mg/ NS 100 ML IV SCH (22:17)
[2017-05-16] MEDS: DILTIAZEM HCL 60 MG TABLET PO SCH ×4 (01:29→21:31)
[2017-05-16] MEDS: metroNIDAZOLE 250 mg/NS 50 ML IV SCH ×3 (01:30→16:22)
[2017-05-16 02:25] VITALS: BP_SYST 124
[2017-05-16] MEDS: MEROPENEM 1 GM in NS 100 ML IV SCH ×3 (05:38→22:19)
[2017-05-16 07:53] LABS: BASOPHILS # (AUTO) 0.3 K/uL (0.0-0.2); BASOPHILS % (AUTO) 1.1 % (0.0-2.0); EOSINOPHILS # (AUTO) 1.3 K/uL (0.0-0.4); HEMATOCRIT 46.5 % (36-48); HEMOGLOBIN 15.6 g/dL (12.0-16.0); LYMPHOCYTES # (AUTO) 1.4 K/uL (1.0-5.5); LYMPHOCYTES % (AUTO) 4.6 % (20.5-51.5); MEAN CORPUSCULAR HEMOGLOBIN 33 pg (27-31); MEAN CORPUSCULAR HGB CONC 34 % (32-36); MEAN CORPUSCULAR VOLUME 98 fL (79.0-98.0); MONOCYTES # (AUTO) 3.1 K/uL (0.0-1.0); MONOCYTES % (AUTO) 9.9 % (1.7-9.3); NEUTROPHILS # (AUTO) 25.3 K/uL (1.8-7.7); PLATELET COUNT (AUTO) 400 K/uL (130-430); RED BLOOD CELL COUNT(AUTO) 4.74 MIL/uL (4.2-6.2); RED CELL DISTRIBUTION WIDTH 18.4 % (9.0-15.0)
[2017-05-16 07:56] LABS: WHITE BLOOD COUNT (AUTO) 31.4 K/uL (4.8-10.8)
[2017-05-16 08:00] VITALS: BP_SYST 133
[2017-05-16 08:04] LABS: CREATININE 0.79 mg/dL (0.55-1.30); POTASSIUM 4.7 mmol/L (3.5-5.1)
[2017-05-16 08:14] LABS: CALCIUM 12.9 mg/dL (8.4-11.0)
[2017-05-16] MEDS: FLUTICASONE PROPIONATE 50 mCg/SPRAY 16 GM NS SCH (08:48)
[2017-05-16] MEDS: CARVEDILOL 12.5 MG TABLET (COREG) PO SCH ×2 (08:48→21:15)
[2017-05-16] MEDS: SPIRONOLACTONE 50 MG TABLET (ALDACTONE) PO SCH ×2 (08:49→21:00)
[2017-05-16] MEDS: PREDNISONE 10 MG TABLET PO SCH (08:50)
[2017-05-16] MEDS: DIGOXIN 0.125 MG TABLET PO SCH (08:51)
[2017-05-16] MEDS: POTASSIUM CHLORIDE 20 MEQ TAB.PRT.SR PO SCH (08:51)
[2017-05-16] MEDS: FUROSEMIDE 20 MG TABLET PO SCH ×2 (08:52→21:14)
[2017-05-16] MEDS: APIXABAN 2.5 MG TABLET PO SCH ×2 (08:53→21:13)
[2017-05-16] MEDS: BALSAM PERU/CASTOR OIL 60 GM OINT...G. TP SCH (08:53)
[2017-05-16] MEDS: MENTHOL/ZINC OXIDE 113 GM OINT. TP SCH ×4 (08:53→21:16)
[2017-05-16 09:45] LABS: NEUTROPHILS % (AUTO) 80.4 % (40.0-70.0)
[2017-05-16 12:21] VITALS: BP_SYST 107
[2017-05-16] MEDS: DIPHENHYDRAMINE HCL 25 MG CAPSULE PO PRN (13:16)
[2017-05-16] MEDS: ACETAMINOPHEN 325 MG TABLET PO PRN ×2 (13:17→22:13)
[2017-05-16 15:35] VITALS: BP_SYST 133
[2017-05-16 16:00] VITALS: BP_SYST 110
[2017-05-16] MEDS: INSULIN REGULAR, HUMAN 100 UNITS/ML, 10 ML VIAL (novoLIN R) SUBCUT PRN (16:42)
[2017-05-16] MEDS: VANCOMYCIN HCL 750 MG in NS 250 ML IV SCH (17:49)
[2017-05-16 21:00] VITALS: BP_SYST 115
[2017-05-16] MEDS: CITALOPRAM HYDROBROMIDE 20 MG TABLET PO SCH (21:00)
[2017-05-16] MEDS: FLUCONAZOLE 200 mg/ NS 100 ML IV SCH (21:22)
[2017-05-17 00:24] VITALS: BP_SYST 101
[2017-05-17] MEDS: DILTIAZEM HCL 60 MG TABLET PO SCH ×4 (02:00→19:21)
[2017-05-17] MEDS: metroNIDAZOLE 250 mg/NS 50 ML IV SCH (03:04)
[2017-05-17] MEDS: ACETAMINOPHEN 325 MG TABLET PO PRN ×3 (04:25→23:23)
[2017-05-17] MEDS: MEROPENEM 1 GM in NS 100 ML IV SCH (05:40)
[2017-05-17] MEDS: VANCOMYCIN HCL 750 MG in NS 250 ML IV SCH ×2 (08:15→18:35)
[2017-05-17 08:22] LABS: CALCIUM 12.3 mg/dL (8.4-11.0); CREATININE 0.76 mg/dL (0.55-1.30); POTASSIUM 4.5 mmol/L (3.5-5.1)
[2017-05-17 08:22] LABS: HEMATOCRIT 45.2 % (36-48); HEMOGLOBIN 14.8 g/dL (12.0-16.0); MEAN CORPUSCULAR HEMOGLOBIN 32 pg (27-31); MEAN CORPUSCULAR HGB CONC 33 % (32-36); MEAN CORPUSCULAR VOLUME 97 fL (79.0-98.0); PLATELET COUNT (AUTO) 422 K/uL (130-430); RED BLOOD CELL COUNT(AUTO) 4.64 MIL/uL (4.2-6.2); RED CELL DISTRIBUTION WIDTH 19.1 % (9.0-15.0)
[2017-05-17 08:41] LABS: WHITE BLOOD COUNT (AUTO) 31.9 K/uL (4.8-10.8)
[2017-05-17 08:47] VITALS: BP_SYST 124
[2017-05-17] MEDS: FLUTICASONE PROPIONATE 50 mCg/SPRAY 16 GM NS SCH (08:49)
[2017-05-17] MEDS: CARVEDILOL 12.5 MG TABLET (COREG) PO SCH ×2 (08:49→20:42)
[2017-05-17] MEDS: DIGOXIN 0.125 MG TABLET PO SCH (08:50)
[2017-05-17] MEDS: APIXABAN 2.5 MG TABLET PO SCH ×2 (08:50→20:39)
[2017-05-17] MEDS: POTASSIUM CHLORIDE 20 MEQ TAB.PRT.SR PO SCH (08:50)
[2017-05-17] MEDS: FUROSEMIDE 20 MG TABLET PO SCH (08:50)
[2017-05-17] MEDS: LORATADINE 10 MG TABLET PO SCH (08:50)
[2017-05-17] MEDS: SPIRONOLACTONE 50 MG TABLET (ALDACTONE) PO SCH (08:51)
[2017-05-17] MEDS: PREDNISONE 10 MG TABLET PO SCH (08:51)
[2017-05-17] MEDS: MENTHOL/ZINC OXIDE 113 GM OINT. TP SCH ×4 (08:52→20:42)
[2017-05-17] MEDS: BALSAM PERU/CASTOR OIL 60 GM OINT...G. TP SCH (08:53)
[2017-05-17] MEDS ORDERED: metroNIDAZOLE 250 mg/NS 50 ML IV SCH (10:00)
[2017-05-17 10:31] LABS: BAND % (MANUAL) 2 % (0-6); BASOPHILS % (MANUAL) 0 % (0-2); EOSINOPHILS % (MANUAL) 7 % (0-7); LYMPHOCYTES % (MANUAL) 5 % (20-46); MONOCYTES % (MANUAL) 10 % (0-11)
[2017-05-17 11:53] VITALS: BP_SYST 105
[2017-05-17] MEDS: CEFTAZIDIME 1 GM in D5W 50 ML IV SCH ×2 (15:35→23:21)
[2017-05-17 16:00] VITALS: BP_SYST 107
[2017-05-17] MEDS: INSULIN REGULAR, HUMAN 100 UNITS/ML, 10 ML VIAL (novoLIN R) SUBCUT PRN (18:39)
[2017-05-17 20:05] VITALS: BP_SYST 111
[2017-05-17] MEDS: FLUCONAZOLE 200 mg/ NS 100 ML IV SCH (20:38)
[2017-05-17] MEDS: CITALOPRAM HYDROBROMIDE 20 MG TABLET PO SCH (20:39)
[2017-05-17] MEDS: FUROSEMIDE 40 MG TABLET PO SCH (20:41)
[2017-05-18] MEDS: DILTIAZEM HCL 60 MG TABLET PO SCH ×4 (02:57→23:31)
[2017-05-18 03:12] VITALS: BP_SYST 122
[2017-05-18] MEDS: CEFTAZIDIME 1 GM in D5W 50 ML IV SCH ×3 (05:25→23:29)
[2017-05-18] MEDS: VANCOMYCIN HCL 750 MG in NS 250 ML IV SCH ×2 (06:15→16:59)
[2017-05-18 07:57] LABS: CALCIUM 12.1 mg/dL (8.4-11.0); CREATININE 0.72 mg/dL (0.55-1.30); POTASSIUM 4.2 mmol/L (3.5-5.1)
[2017-05-18 08:09] LABS: BASOPHILS # (AUTO) 0.1 K/uL (0.0-0.2); BASOPHILS % (AUTO) 0.3 % (0.0-2.0); EOSINOPHILS # (AUTO) 1.4 K/uL (0.0-0.4); EOSINOPHILS % (AUTO) 4.5 % (0.0-4.0); HEMATOCRIT 43.8 % (36-48); HEMOGLOBIN 14.5 g/dL (12.0-16.0); LYMPHOCYTES # (AUTO) 1.1 K/uL (1.0-5.5); LYMPHOCYTES % (AUTO) 3.6 % (20.5-51.5); MEAN CORPUSCULAR HEMOGLOBIN 32 pg (27-31); MEAN CORPUSCULAR HGB CONC 33 % (32-36); MEAN CORPUSCULAR VOLUME 97 fL (79.0-98.0); MONOCYTES # (AUTO) 1.9 K/uL (0.0-1.0); MONOCYTES % (AUTO) 6.1 % (1.7-9.3); PLATELET COUNT (AUTO) 455 K/uL (130-430); RED BLOOD CELL COUNT(AUTO) 4.53 MIL/uL (4.2-6.2); RED CELL DISTRIBUTION WIDTH 18.5 % (9.0-15.0)
[2017-05-18 08:17] LABS: WHITE BLOOD COUNT (AUTO) 30.5 K/uL (4.8-10.8)
[2017-05-18 08:19] LABS: NEUTROPHILS % (AUTO) 85.5 % (40.0-70.0)
[2017-05-18] MEDS: FLUTICASONE PROPIONATE 50 mCg/SPRAY 16 GM NS SCH (09:00)
[2017-05-18 09:09] VITALS: BP_SYST 106
[2017-05-18] MEDS: APIXABAN 2.5 MG TABLET PO SCH ×2 (09:11→23:32)
[2017-05-18] MEDS: LORATADINE 10 MG TABLET PO SCH (09:11)
[2017-05-18] MEDS: POTASSIUM CHLORIDE 20 MEQ TAB.PRT.SR PO SCH (09:12)
[2017-05-18] MEDS: PREDNISONE 10 MG TABLET PO SCH (09:12)
[2017-05-18] MEDS: DIGOXIN 0.125 MG TABLET PO SCH (09:12)
[2017-05-18] MEDS: FUROSEMIDE 40 MG TABLET PO SCH ×2 (09:13→23:32)
[2017-05-18] MEDS: MENTHOL/ZINC OXIDE 113 GM OINT. TP SCH ×4 (09:14→21:00)
[2017-05-18] MEDS: CARVEDILOL 12.5 MG TABLET (COREG) PO SCH ×2 (09:14→23:34)
[2017-05-18] MEDS: BALSAM PERU/CASTOR OIL 60 GM OINT...G. TP SCH (09:15)
[2017-05-18 12:00] VITALS: BP_SYST 101
[2017-05-18 16:00] VITALS: BP_SYST 105
[2017-05-18] MEDS: INSULIN REGULAR, HUMAN 100 UNITS/ML, 10 ML VIAL (novoLIN R) SUBCUT PRN (16:58)
[2017-05-18 21:23] VITALS: BP_SYST 123
[2017-05-18] MEDS: FLUCONAZOLE 200 mg/ NS 100 ML IV SCH (23:29)
[2017-05-18] MEDS: CITALOPRAM HYDROBROMIDE 20 MG TABLET PO SCH (23:32)
[2017-05-19 00:45] VITALS: BP_SYST 124
[2017-05-19] MEDS: DILTIAZEM HCL 60 MG TABLET PO SCH ×4 (02:41→21:07)
[2017-05-19 06:27] LABS: BASOPHILS # (AUTO) 0.1 K/uL (0.0-0.2)
[2017-05-19] MEDS: VANCOMYCIN HCL 750 MG in NS 250 ML IV SCH (06:43)
[2017-05-19] MEDS: CEFTAZIDIME 1 GM in D5W 50 ML IV SCH ×3 (06:44→22:23)
[2017-05-19 06:51] LABS: BASOPHILS % (AUTO) 0.2 % (0.0-2.0); EOSINOPHILS # (AUTO) 0.5 K/uL (0.0-0.4); EOSINOPHILS % (AUTO) 1.7 % (0.0-4.0); HEMATOCRIT 44.7 % (36-48); HEMOGLOBIN 14.8 g/dL (12.0-16.0); LYMPHOCYTES % (AUTO) 3.4 % (20.5-51.5); MEAN CORPUSCULAR HEMOGLOBIN 32 pg (27-31); MEAN CORPUSCULAR HGB CONC 33 % (32-36); MEAN CORPUSCULAR VOLUME 97 fL (79.0-98.0); MONOCYTES # (AUTO) 2.9 K/uL (0.0-1.0); MONOCYTES % (AUTO) 9.6 % (1.7-9.3); NEUTROPHILS # (AUTO) 25.6 K/uL (1.8-7.7); NEUTROPHILS % (AUTO) 85.1 % (40.0-70.0); PLATELET COUNT (AUTO) 460 K/uL (130-430); RED CELL DISTRIBUTION WIDTH 18.8 % (9.0-15.0)
[2017-05-19 06:56] LABS: WHITE BLOOD COUNT (AUTO) 30.1 K/uL (4.8-10.8)
[2017-05-19 07:00] LABS: CALCIUM 11.6 mg/dL (8.4-11.0); CREATININE 0.78 mg/dL (0.55-1.30); POTASSIUM 4.3 mmol/L (3.5-5.1)
[2017-05-19 08:30] VITALS: BP_SYST 116
[2017-05-19] MEDS: CARVEDILOL 12.5 MG TABLET (COREG) PO SCH ×3 (09:00→21:06)
[2017-05-19] MEDS: LORATADINE 10 MG TABLET PO SCH ×2 (09:00→09:33)
[2017-05-19] MEDS: FLUTICASONE PROPIONATE 50 mCg/SPRAY 16 GM NS SCH ×2 (09:00→09:34)
[2017-05-19] MEDS: DIGOXIN 0.125 MG TABLET PO SCH (09:32)
[2017-05-19] MEDS: FUROSEMIDE 40 MG TABLET PO SCH (09:32)
[2017-05-19] MEDS: PREDNISONE 10 MG TABLET PO SCH (09:33)
[2017-05-19] MEDS: POTASSIUM CHLORIDE 20 MEQ TAB.PRT.SR PO SCH (09:33)
[2017-05-19] MEDS: APIXABAN 2.5 MG TABLET PO SCH ×2 (09:40→21:07)
[2017-05-19] MEDS: MENTHOL/ZINC OXIDE 113 GM OINT. TP SCH ×4 (09:40→21:08)
[2017-05-19] MEDS: INSULIN REGULAR, HUMAN 100 UNITS/ML, 10 ML VIAL (novoLIN R) SUBCUT PRN ×3 (11:48→21:28)
[2017-05-19 12:00] VITALS: BP_SYST 139
[2017-05-19 12:01] LABS: INR 1.3 (0.8-1.2); PROTHROMBIN TIME 13.3 SECS (9.5-12.5)
[2017-05-19 16:06] VITALS: BP_SYST 140
[2017-05-19] MEDS: BALSAM PERU/CASTOR OIL 60 GM OINT...G. TP SCH (16:44)
[2017-05-19 19:44] VITALS: BP_SYST 136
[2017-05-19] MEDS: FLUCONAZOLE 200 mg/ NS 100 ML IV SCH (21:04)
[2017-05-19] MEDS: CITALOPRAM HYDROBROMIDE 20 MG TABLET PO SCH (21:06)
[2017-05-20 00:12] VITALS: BP_SYST 140
[2017-05-20] MEDS: DILTIAZEM HCL 60 MG TABLET PO SCH ×4 (02:40→20:20)
[2017-05-20] MEDS: CEFTAZIDIME 1 GM in D5W 50 ML IV SCH (05:21)
[2017-05-20 07:06] LABS: MEAN CORPUSCULAR HEMOGLOBIN 33 pg (27-31); MEAN CORPUSCULAR HGB CONC 34 % (32-36)
[2017-05-20 07:11] LABS: CALCIUM 11.2 mg/dL (8.4-11.0); CREATININE 0.82 mg/dL (0.55-1.30); POTASSIUM 4.5 mmol/L (3.5-5.1); TOTAL BILIRUBIN 1.2 mg/dL (0.0-1.0); VANCOMYCIN,RANDOM 32.8 ug/mL
[2017-05-20 07:24] LABS: BASOPHILS # (AUTO) 0.2 K/uL (0.0-0.2); BASOPHILS % (AUTO) 0.5 % (0.0-2.0); EOSINOPHILS # (AUTO) 0.7 K/uL (0.0-0.4); EOSINOPHILS % (AUTO) 2.1 % (0.0-4.0); HEMOGLOBIN 14.4 g/dL (12.0-16.0); LYMPHOCYTES # (AUTO) 0.8 K/uL (1.0-5.5); LYMPHOCYTES % (AUTO) 2.4 % (20.5-51.5); MEAN CORPUSCULAR VOLUME 96 fL (79.0-98.0); MONOCYTES # (AUTO) 1.5 K/uL (0.0-1.0); MONOCYTES % (AUTO) 4.7 % (1.7-9.3); NEUTROPHILS # (AUTO) 29.6 K/uL (1.8-7.7); NEUTROPHILS % (AUTO) 90.3 % (40.0-70.0); PLATELET COUNT (AUTO) 531 K/uL (130-430); RED CELL DISTRIBUTION WIDTH 19.1 % (9.0-15.0)
[2017-05-20 07:39] LABS: WHITE BLOOD COUNT (AUTO) 32.9 K/uL (4.8-10.8)
[2017-05-20 08:05] VITALS: BP_SYST 127
[2017-05-20] MEDS: PREDNISONE 10 MG TABLET PO SCH (08:08)
[2017-05-20] MEDS: FLUTICASONE PROPIONATE 50 mCg/SPRAY 16 GM NS SCH (08:08)
[2017-05-20] MEDS: FUROSEMIDE 40 MG TABLET PO SCH (08:09)
[2017-05-20] MEDS: DIGOXIN 0.125 MG TABLET PO SCH (08:09)
[2017-05-20] MEDS: LORATADINE 10 MG TABLET PO SCH (08:10)
[2017-05-20] MEDS: CARVEDILOL 12.5 MG TABLET (COREG) PO SCH ×2 (08:10→20:21)
[2017-05-20] MEDS: APIXABAN 2.5 MG TABLET PO SCH ×2 (08:11→20:21)
[2017-05-20] MEDS: POTASSIUM CHLORIDE 20 MEQ TAB.PRT.SR PO SCH (08:11)
[2017-05-20] MEDS: MENTHOL/ZINC OXIDE 113 GM OINT. TP SCH ×4 (08:12→20:22)
[2017-05-20] MEDS: BALSAM PERU/CASTOR OIL 60 GM OINT...G. TP SCH (08:12)
[2017-05-20] MEDS: ACETAMINOPHEN 325 MG TABLET PO PRN (08:25)
[2017-05-20] MEDS ORDERED: DIATR MEGLU/DIATRIZ SOD 30 ML SOLUTION PO ONE (11:47)
[2017-05-20 12:00] VITALS: BP_SYST 125
[2017-05-20] MEDS: MEROPENEM 1 GM in NS 100 ML IV SCH ×2 (13:13→21:44)
[2017-05-20] MEDS ORDERED: IOHEXOL 100 ML IV ONE (15:24)
[2017-05-20 16:00] VITALS: BP_SYST 129
[2017-05-20 20:00] VITALS: BP_SYST 128
[2017-05-20] MEDS: FLUCONAZOLE 200 mg/ NS 100 ML IV SCH (20:19)
[2017-05-20] MEDS: CITALOPRAM HYDROBROMIDE 20 MG TABLET PO SCH (20:20)
[2017-05-21 01:00] VITALS: BP_SYST 106
[2017-05-21] MEDS: DILTIAZEM HCL 60 MG TABLET PO SCH ×4 (01:58→21:03)
[2017-05-21] MEDS: MEROPENEM 1 GM in NS 100 ML IV SCH (05:52)
[2017-05-21 08:04] VITALS: BP_SYST 118
[2017-05-21] MEDS: LORATADINE 10 MG TABLET PO SCH (08:24)
[2017-05-21] MEDS: POTASSIUM CHLORIDE 20 MEQ TAB.PRT.SR PO SCH (08:24)
[2017-05-21] MEDS: APIXABAN 2.5 MG TABLET PO SCH ×2 (08:24→21:03)
[2017-05-21] MEDS: PREDNISONE 10 MG TABLET PO SCH (08:24)
[2017-05-21] MEDS: FLUTICASONE PROPIONATE 50 mCg/SPRAY 16 GM NS SCH (08:24)
[2017-05-21] MEDS: CARVEDILOL 12.5 MG TABLET (COREG) PO SCH ×2 (08:25→21:04)
[2017-05-21] MEDS: DIGOXIN 0.125 MG TABLET PO SCH (08:25)
[2017-05-21] MEDS: FUROSEMIDE 40 MG TABLET PO SCH (08:26)
[2017-05-21] MEDS: MENTHOL/ZINC OXIDE 113 GM OINT. TP SCH ×4 (08:27→21:21)
[2017-05-21] MEDS: BALSAM PERU/CASTOR OIL 60 GM OINT...G. TP SCH (08:27)
[2017-05-21] MEDS: NACL 0.9% 1,000 ML IV SCH (11:13)
[2017-05-21 11:49] VITALS: BP_SYST 129
[2017-05-21 13:17] VITALS: BP_SYST 128
[2017-05-21 14:05] LABS: BASOPHILS # (AUTO) 0.2 K/uL (0.0-0.2); BASOPHILS % (AUTO) 0.6 % (0.0-2.0); EOSINOPHILS % (AUTO) 0.1 % (0.0-4.0); HEMATOCRIT 39.8 % (36-48); HEMOGLOBIN 13.5 g/dL (12.0-16.0); LYMPHOCYTES # (AUTO) 0.6 K/uL (1.0-5.5); LYMPHOCYTES % (AUTO) 1.5 % (20.5-51.5); MEAN CORPUSCULAR HEMOGLOBIN 33 pg (27-31); MEAN CORPUSCULAR HGB CONC 34 % (32-36); MEAN CORPUSCULAR VOLUME 96 fL (79.0-98.0); MONOCYTES # (AUTO) 0.9 K/uL (0.0-1.0); MONOCYTES % (AUTO) 2.2 % (1.7-9.3); NEUTROPHILS # (AUTO) 39.2 K/uL (1.8-7.7); PLATELET COUNT (AUTO) 410 K/uL (130-430); RED BLOOD CELL COUNT(AUTO) 4.15 MIL/uL (4.2-6.2); RED CELL DISTRIBUTION WIDTH 18.5 % (9.0-15.0)
[2017-05-21 14:16] LABS: CALCIUM 10.7 mg/dL (8.4-11.0); CREATININE 0.7 mg/dL (0.55-1.30); POTASSIUM 4.4 mmol/L (3.5-5.1)
[2017-05-21 14:22] LABS: WHITE BLOOD COUNT (AUTO) 40.9 K/uL (4.8-10.8)
[2017-05-21 16:05] VITALS: BP_SYST 110
[2017-05-21 16:12] LABS: NEUTROPHILS % (AUTO) 95.6 % (40.0-70.0)
[2017-05-21 20:00] VITALS: BP_SYST 123
[2017-05-21] MEDS: CITALOPRAM HYDROBROMIDE 20 MG TABLET PO SCH (21:04)
[2017-05-21] MEDS: INSULIN REGULAR, HUMAN 100 UNITS/ML, 10 ML VIAL (novoLIN R) SUBCUT PRN (21:23)
[2017-05-22 00:46] VITALS: BP_SYST 101
[2017-05-22] MEDS: NACL 0.9% 1,000 ML IV SCH ×2 (01:50→17:26)
[2017-05-22] MEDS: DILTIAZEM HCL 60 MG TABLET PO SCH ×4 (02:00→20:06)
[2017-05-22] MEDS ORDERED: VANCOMYCIN HCL 1,250 MG in NS 250 ML IV SCH (06:00)
[2017-05-22 08:54] LABS: CALCIUM 10.2 mg/dL (8.4-11.0); CREATININE 0.56 mg/dL (0.55-1.30); POTASSIUM 4.8 mmol/L (3.5-5.1)
[2017-05-22] MEDS: DIGOXIN 0.125 MG TABLET PO SCH (09:26)
[2017-05-22] MEDS: FLUTICASONE PROPIONATE 50 mCg/SPRAY 16 GM NS SCH (09:26)
[2017-05-22] MEDS: POTASSIUM CHLORIDE 20 MEQ TAB.PRT.SR PO SCH (09:27)
[2017-05-22] MEDS: FUROSEMIDE 40 MG TABLET PO SCH (09:27)
[2017-05-22] MEDS: APIXABAN 2.5 MG TABLET PO SCH ×2 (09:28→20:05)
[2017-05-22] MEDS: LORATADINE 10 MG TABLET PO SCH (09:28)
[2017-05-22] MEDS: PREDNISONE 10 MG TABLET PO SCH (09:28)
[2017-05-22] MEDS: CARVEDILOL 12.5 MG TABLET (COREG) PO SCH ×2 (09:28→20:05)
[2017-05-22] MEDS: MENTHOL/ZINC OXIDE 113 GM OINT. TP SCH ×4 (09:32→20:06)
[2017-05-22] MEDS: BALSAM PERU/CASTOR OIL 60 GM OINT...G. TP SCH (09:32)
[2017-05-22 12:00] VITALS: BP_SYST 104
[2017-05-22 13:23] LABS: BASOPHILS # (AUTO) 0.3 K/uL (0.0-0.2); BASOPHILS % (AUTO) 0.8 % (0.0-2.0); EOSINOPHILS # (AUTO) 0.1 K/uL (0.0-0.4); EOSINOPHILS % (AUTO) 0.3 % (0.0-4.0); HEMATOCRIT 39.2 % (36-48); LYMPHOCYTES # (AUTO) 0.7 K/uL (1.0-5.5); MEAN CORPUSCULAR HEMOGLOBIN 33 pg (27-31); MEAN CORPUSCULAR HGB CONC 33 % (32-36); MEAN CORPUSCULAR VOLUME 98 fL (79.0-98.0); MONOCYTES # (AUTO) 0.4 K/uL (0.0-1.0); MONOCYTES % (AUTO) 1.1 % (1.7-9.3); NEUTROPHILS # (AUTO) 33.4 K/uL (1.8-7.7); NEUTROPHILS % (AUTO) 95.8 % (40.0-70.0); RED BLOOD CELL COUNT(AUTO) 3.99 MIL/uL (4.2-6.2); RED CELL DISTRIBUTION WIDTH 18.5 % (9.0-15.0)
[2017-05-22 13:34] LABS: WHITE BLOOD COUNT (AUTO) 34.9 K/uL (4.8-10.8)
[2017-05-22 14:19] LABS: PLATELET COUNT (AUTO) 383 K/uL (130-430)
[2017-05-22 16:00] VITALS: BP_SYST 109
[2017-05-22 19:07] LABS: PTH RELATED PEPTIDE <1.1 pmol/L (.)
[2017-05-22 20:00] VITALS: BP_SYST 114
[2017-05-22] MEDS: CITALOPRAM HYDROBROMIDE 20 MG TABLET PO SCH (20:06)
[2017-05-22 23:51] VITALS: BP_SYST 127
[2017-05-23] VITALS: BP_SYST 112
[2017-05-23] MEDS: DILTIAZEM HCL 60 MG TABLET PO SCH ×4 (01:56→22:11)
[2017-05-23 05:58] VITALS: BP_SYST 108
[2017-05-23 06:26] LABS: BASOPHILS # (AUTO) 0.2 K/uL (0.0-0.2); BASOPHILS % (AUTO) 0.6 % (0.0-2.0); EOSINOPHILS # (AUTO) 0.1 K/uL (0.0-0.4); EOSINOPHILS % (AUTO) 0.4 % (0.0-4.0); HEMATOCRIT 37.3 % (36-48); HEMOGLOBIN 12.5 g/dL (12.0-16.0); LYMPHOCYTES # (AUTO) 0.6 K/uL (1.0-5.5); LYMPHOCYTES % (AUTO) 2.2 % (20.5-51.5); MEAN CORPUSCULAR HEMOGLOBIN 32 pg (27-31); MEAN CORPUSCULAR HGB CONC 33 % (32-36); MONOCYTES # (AUTO) 1.5 K/uL (0.0-1.0); MONOCYTES % (AUTO) 5.6 % (1.7-9.3); NEUTROPHILS # (AUTO) 24.8 K/uL (1.8-7.7); NEUTROPHILS % (AUTO) 91.2 % (40.0-70.0); PLATELET COUNT (AUTO) 403 K/uL (130-430); RED BLOOD CELL COUNT(AUTO) 3.88 MIL/uL (4.2-6.2); RED CELL DISTRIBUTION WIDTH 18.2 % (9.0-15.0); WHITE BLOOD COUNT (AUTO) 27.2 K/uL (4.8-10.8)
[2017-05-23 06:39] LABS: CALCIUM 10.2 mg/dL (8.4-11.0); CREATININE 0.6 mg/dL (0.55-1.30); POTASSIUM 4.3 mmol/L (3.5-5.1)
[2017-05-23 07:07] LABS: MEAN CORPUSCULAR VOLUME 96 fL (79.0-98.0)
[2017-05-23 07:48] VITALS: BP_SYST 128
[2017-05-23] MEDS: APIXABAN 2.5 MG TABLET PO SCH ×2 (08:11→22:10)
[2017-05-23] MEDS: POTASSIUM CHLORIDE 20 MEQ TAB.PRT.SR PO SCH (08:12)
[2017-05-23] MEDS: DIGOXIN 0.125 MG TABLET PO SCH (08:12)
[2017-05-23] MEDS: PREDNISONE 10 MG TABLET PO SCH (08:12)
[2017-05-23] MEDS: CARVEDILOL 12.5 MG TABLET (COREG) PO SCH ×2 (08:13→22:10)
[2017-05-23] MEDS: FUROSEMIDE 40 MG TABLET PO SCH (08:13)
[2017-05-23] MEDS: LORATADINE 10 MG TABLET PO SCH (08:13)
[2017-05-23] MEDS: FLUTICASONE PROPIONATE 50 mCg/SPRAY 16 GM NS SCH (08:14)
[2017-05-23] MEDS: ACETAMINOPHEN 325 MG TABLET PO PRN ×2 (10:20→22:09)
[2017-05-23] MEDS: NACL 0.9% 1,000 ML IV SCH (11:40)
[2017-05-23] MEDS: BALSAM PERU/CASTOR OIL 60 GM OINT...G. TP SCH (11:41)
[2017-05-23] MEDS: MENTHOL/ZINC OXIDE 113 GM OINT. TP SCH ×4 (11:42→22:12)
[2017-05-23 12:00] VITALS: BP_SYST 110
[2017-05-23 15:52] VITALS: BP_SYST 103
[2017-05-23] MEDS: INSULIN REGULAR, HUMAN 100 UNITS/ML, 10 ML VIAL (novoLIN R) SUBCUT PRN ×2 (16:59→22:08)
[2017-05-23 19:15] VITALS: BP_SYST 108
[2017-05-23] MEDS: MIRTAZAPINE 15 MG TABLET PO SCH (22:12)
[2017-05-24 00:26] VITALS: BP_SYST 127
[2017-05-24] MEDS: DILTIAZEM HCL 60 MG TABLET PO SCH ×4 (01:22→21:52)
[2017-05-24] MEDS: DIPHENHYDRAMINE HCL 25 MG CAPSULE PO PRN (01:23)
[2017-05-24] MEDS: ACETAMINOPHEN 325 MG TABLET PO PRN ×2 (05:39→14:17)
[2017-05-24 08:10] VITALS: BP_SYST 131
[2017-05-24] MEDS: DIGOXIN 0.125 MG TABLET PO SCH (08:54)
[2017-05-24] MEDS: FLUTICASONE PROPIONATE 50 mCg/SPRAY 16 GM NS SCH (08:55)
[2017-05-24] MEDS: APIXABAN 2.5 MG TABLET PO SCH ×2 (08:56→21:53)
[2017-05-24] MEDS: PREDNISONE 10 MG TABLET PO SCH (08:56)
[2017-05-24] MEDS: POTASSIUM CHLORIDE 20 MEQ TAB.PRT.SR PO SCH (08:56)
[2017-05-24] MEDS: LORATADINE 10 MG TABLET PO SCH (08:56)
[2017-05-24] MEDS: CARVEDILOL 12.5 MG TABLET (COREG) PO SCH ×2 (08:56→21:53)
[2017-05-24] MEDS: FUROSEMIDE 40 MG TABLET PO SCH (08:57)
[2017-05-24] MEDS: BALSAM PERU/CASTOR OIL 60 GM OINT...G. TP SCH (09:33)
[2017-05-24] MEDS: MENTHOL/ZINC OXIDE 113 GM OINT. TP SCH ×4 (09:33→21:55)
[2017-05-24] MEDS: INSULIN REGULAR, HUMAN 100 UNITS/ML, 10 ML VIAL (novoLIN R) SUBCUT PRN ×2 (11:04→17:01)
[2017-05-24 12:10] VITALS: BP_SYST 116
[2017-05-24 16:51] VITALS: BP_SYST 103
[2017-05-24 20:09] VITALS: BP_SYST 124
[2017-05-24] MEDS: MIRTAZAPINE 15 MG TABLET PO SCH (21:52)
[2017-05-25 01:21] VITALS: BP_SYST 118
[2017-05-25] MEDS: ACETAMINOPHEN 325 MG TABLET PO PRN (02:41)
[2017-05-25] MEDS: DILTIAZEM HCL 60 MG TABLET PO SCH ×4 (02:41→20:16)
[2017-05-25 07:18] LABS: HEMATOCRIT 33.7 % (36-48); HEMOGLOBIN 11.3 g/dL (12.0-16.0); MEAN CORPUSCULAR HEMOGLOBIN 33 pg (27-31); MEAN CORPUSCULAR HGB CONC 34 % (32-36); MEAN CORPUSCULAR VOLUME 97 fL (79.0-98.0); PLATELET COUNT (AUTO) 438 K/uL (130-430); RED BLOOD CELL COUNT(AUTO) 3.47 MIL/uL (4.2-6.2); RED CELL DISTRIBUTION WIDTH 18.4 % (9.0-15.0)
[2017-05-25 07:36] LABS: ALBUMIN 1.4 g/dL (3.4-4.8); CALCIUM 9.9 mg/dL (8.4-11.0); CREATININE 0.46 mg/dL (0.55-1.30); POTASSIUM 3.9 mmol/L (3.5-5.1); TOTAL BILIRUBIN 0.6 mg/dL (0.0-1.0)
[2017-05-25 08:11] VITALS: BP_SYST 145
[2017-05-25 08:26] LABS: BAND % (MANUAL) 3 % (0-6); BASOPHILS % (MANUAL) 0 % (0-2); EOSINOPHILS % (MANUAL) 1 % (0-7); LYMPHOCYTES % (MANUAL) 3 % (20-46); MONOCYTES % (MANUAL) 5 % (0-11)
[2017-05-25] MEDS: APIXABAN 2.5 MG TABLET PO SCH ×2 (08:31→20:15)
[2017-05-25] MEDS: POTASSIUM CHLORIDE 20 MEQ TAB.PRT.SR PO SCH (08:31)
[2017-05-25] MEDS: PREDNISONE 10 MG TABLET PO SCH (08:31)
[2017-05-25] MEDS: CARVEDILOL 12.5 MG TABLET (COREG) PO SCH ×2 (08:32→20:15)
[2017-05-25] MEDS: FUROSEMIDE 40 MG TABLET PO SCH (08:33)
[2017-05-25] MEDS: DIGOXIN 0.125 MG TABLET PO SCH (08:35)
[2017-05-25] MEDS: LORATADINE 10 MG TABLET PO SCH (08:37)
[2017-05-25] MEDS: FLUTICASONE PROPIONATE 50 mCg/SPRAY 16 GM NS SCH (08:38)
[2017-05-25] MEDS: BALSAM PERU/CASTOR OIL 60 GM OINT...G. TP SCH (09:00)
[2017-05-25] MEDS: MENTHOL/ZINC OXIDE 113 GM OINT. TP SCH ×4 (09:00→21:31)
[2017-05-25 12:09] VITALS: BP_SYST 142
[2017-05-25 13:06] LABS: VIT D,1, 25-DIHYDROXY 26.1 pg/mL (19.9-79.3)
[2017-05-25 16:00] VITALS: BP_SYST 144
[2017-05-25] MEDS: INSULIN REGULAR, HUMAN 100 UNITS/ML, 10 ML VIAL (novoLIN R) SUBCUT PRN ×2 (18:21→20:27)
[2017-05-25 19:06] LABS: PTH, INTACT 7 pg/mL (15-65)
[2017-05-25] MEDS: MIRTAZAPINE 15 MG TABLET PO SCH (20:15)
[2017-05-25 20:38] VITALS: BP_SYST 131
[2017-05-26 00:28] VITALS: BP_SYST 124
[2017-05-26] MEDS: DILTIAZEM HCL 60 MG TABLET PO SCH ×4 (02:15→20:29)
[2017-05-26] MEDS: ACETAMINOPHEN 325 MG TABLET PO PRN (06:00)
[2017-05-26] MEDS: FUROSEMIDE 40 MG TABLET PO SCH (08:16)
[2017-05-26] MEDS: APIXABAN 2.5 MG TABLET PO SCH ×2 (08:16→20:29)
[2017-05-26] MEDS: PREDNISONE 10 MG TABLET PO SCH (08:16)
[2017-05-26] MEDS: DIGOXIN 0.125 MG TABLET PO SCH (08:17)
[2017-05-26] MEDS: FLUTICASONE PROPIONATE 50 mCg/SPRAY 16 GM NS SCH (08:17)
[2017-05-26] MEDS: CARVEDILOL 12.5 MG TABLET (COREG) PO SCH ×2 (08:17→20:29)
[2017-05-26] MEDS: POTASSIUM CHLORIDE 20 MEQ TAB.PRT.SR PO SCH (08:18)
[2017-05-26] MEDS: LORATADINE 10 MG TABLET PO SCH (08:18)
[2017-05-26] MEDS: MENTHOL/ZINC OXIDE 113 GM OINT. TP SCH ×4 (08:20→20:44)
[2017-05-26 08:39] VITALS: BP_SYST 120
[2017-05-26 11:21] VITALS: BP_SYST 102
[2017-05-26] MEDS: INSULIN REGULAR, HUMAN 100 UNITS/ML, 10 ML VIAL (novoLIN R) SUBCUT PRN ×3 (12:12→20:46)
[2017-05-26 12:14] VITALS: BP_SYST 102
[2017-05-26] MEDS: BALSAM PERU/CASTOR OIL 60 GM OINT...G. TP SCH (15:00)
[2017-05-26 16:00] VITALS: BP_SYST 110
[2017-05-26] MEDS: MIRTAZAPINE 15 MG TABLET PO SCH (20:29)
[2017-05-26 23:28] VITALS: BP_SYST 106
[2017-05-27] MEDS: DILTIAZEM HCL 60 MG TABLET PO SCH ×4 (03:40→20:21)
[2017-05-27 07:44] LABS: CALCIUM 10.3 mg/dL (8.4-11.0); CREATININE 0.51 mg/dL (0.55-1.30); POTASSIUM 4.7 mmol/L (3.5-5.1)
[2017-05-27 08:04] VITALS: BP_SYST 127
[2017-05-27] MEDS: FLUTICASONE PROPIONATE 50 mCg/SPRAY 16 GM NS SCH (09:00)
[2017-05-27 09:49] LABS: HEMATOCRIT 35.1 % (36-48); HEMOGLOBIN 12.1 g/dL (12.0-16.0); MEAN CORPUSCULAR HEMOGLOBIN 33 pg (27-31); MEAN CORPUSCULAR HGB CONC 34 % (32-36); MEAN CORPUSCULAR VOLUME 96 fL (79.0-98.0); RED BLOOD CELL COUNT(AUTO) 3.65 MIL/uL (4.2-6.2); RED CELL DISTRIBUTION WIDTH 17.7 % (9.0-15.0); WHITE BLOOD COUNT (AUTO) 21.2 K/uL (4.8-10.8)
[2017-05-27 09:50] LABS: PLATELET COUNT (AUTO) 549 K/uL (130-430)
[2017-05-27] MEDS: PREDNISONE 10 MG TABLET PO SCH (10:06)
[2017-05-27] MEDS: APIXABAN 2.5 MG TABLET PO SCH ×2 (10:06→20:21)
[2017-05-27] MEDS: POTASSIUM CHLORIDE 20 MEQ TAB.PRT.SR PO SCH (10:06)
[2017-05-27] MEDS: FUROSEMIDE 40 MG TABLET PO SCH (10:07)
[2017-05-27] MEDS: DIGOXIN 0.125 MG TABLET PO SCH (10:10)
[2017-05-27] MEDS: CARVEDILOL 12.5 MG TABLET (COREG) PO SCH ×2 (10:12→20:22)
[2017-05-27] MEDS: LORATADINE 10 MG TABLET PO SCH (10:12)
[2017-05-27 10:49] LABS: EOSINOPHILS % (MANUAL) 9 % (0-7); MONOCYTES % (MANUAL) 11 % (0-11)
[2017-05-27 10:50] LABS: BASOPHILS % (MANUAL) 0 % (0-2); METAMYELOCYTES % 3 % (0-0)
[2017-05-27 10:51] LABS: BAND % (MANUAL) 3 % (0-6); LYMPHOCYTES % (MANUAL) 6 % (20-46)
[2017-05-27 12:02] VITALS: BP_SYST 120
[2017-05-27] MEDS: INSULIN REGULAR, HUMAN 100 UNITS/ML, 10 ML VIAL (novoLIN R) SUBCUT PRN ×3 (12:03→20:26)
[2017-05-27] MEDS: MENTHOL/ZINC OXIDE 113 GM OINT. TP SCH ×4 (13:00→20:52)
[2017-05-27] MEDS: BALSAM PERU/CASTOR OIL 60 GM OINT...G. TP SCH (16:00)
[2017-05-27 16:40] VITALS: BP_SYST 101
[2017-05-27] MEDS: MIRTAZAPINE 15 MG TABLET PO SCH (20:22)
[2017-05-27 20:43] VITALS: BP_SYST 110
[2017-05-28 00:52] VITALS: BP_SYST 136
[2017-05-28] MEDS: DILTIAZEM HCL 60 MG TABLET PO SCH ×4 (02:00→20:21)
[2017-05-28 08:00] VITALS: BP_SYST 147
[2017-05-28] MEDS: APIXABAN 2.5 MG TABLET PO SCH ×2 (08:16→20:21)
[2017-05-28] MEDS: DIGOXIN 0.125 MG TABLET PO SCH (08:16)
[2017-05-28] MEDS: POTASSIUM CHLORIDE 20 MEQ TAB.PRT.SR PO SCH (08:16)
[2017-05-28] MEDS: PREDNISONE 10 MG TABLET PO SCH (08:17)
[2017-05-28] MEDS: FUROSEMIDE 40 MG TABLET PO SCH (08:17)
[2017-05-28] MEDS: LORATADINE 10 MG TABLET PO SCH (08:17)
[2017-05-28] MEDS: FLUTICASONE PROPIONATE 50 mCg/SPRAY 16 GM NS SCH (08:18)
[2017-05-28] MEDS: BALSAM PERU/CASTOR OIL 60 GM OINT...G. TP SCH (08:18)
[2017-05-28] MEDS: CARVEDILOL 12.5 MG TABLET (COREG) PO SCH ×2 (08:18→20:21)
[2017-05-28] MEDS: ACETAMINOPHEN 325 MG TABLET PO PRN ×3 (08:19→20:24)
[2017-05-28] MEDS: MENTHOL/ZINC OXIDE 113 GM OINT. TP SCH ×4 (08:20→20:22)
[2017-05-28] MEDS: INSULIN REGULAR, HUMAN 100 UNITS/ML, 10 ML VIAL (novoLIN R) SUBCUT PRN ×3 (11:36→20:38)
[2017-05-28 12:28] VITALS: BP_SYST 147
[2017-05-28 16:22] VITALS: BP_SYST 122
[2017-05-28 20:10] VITALS: BP_SYST 134
[2017-05-28] MEDS: MIRTAZAPINE 15 MG TABLET PO SCH (20:21)
[2017-05-29 02:20] VITALS: BP_SYST 128
[2017-05-29] MEDS: DILTIAZEM HCL 60 MG TABLET PO SCH ×4 (04:06→20:57)
[2017-05-29] MEDS: INSULIN REGULAR, HUMAN 100 UNITS/ML, 10 ML VIAL (novoLIN R) SUBCUT PRN ×4 (06:10→21:57)
[2017-05-29] MEDS: ACETAMINOPHEN 325 MG TABLET PO PRN ×3 (06:13→17:48)
[2017-05-29 08:00] VITALS: BP_SYST 138
[2017-05-29] MEDS: BALSAM PERU/CASTOR OIL 60 GM OINT...G. TP SCH (08:36)
[2017-05-29] MEDS: FLUTICASONE PROPIONATE 50 mCg/SPRAY 16 GM NS SCH (08:36)
[2017-05-29] MEDS: FUROSEMIDE 40 MG TABLET PO SCH (08:37)
[2017-05-29] MEDS: MENTHOL/ZINC OXIDE 113 GM OINT. TP SCH ×5 (08:37→21:59)
[2017-05-29] MEDS: LORATADINE 10 MG TABLET PO SCH (08:37)
[2017-05-29] MEDS: DIGOXIN 0.125 MG TABLET PO SCH (08:38)
[2017-05-29] MEDS: PREDNISONE 10 MG TABLET PO SCH (08:38)
[2017-05-29] MEDS: APIXABAN 2.5 MG TABLET PO SCH ×2 (08:39→20:57)
[2017-05-29] MEDS: CARVEDILOL 12.5 MG TABLET (COREG) PO SCH ×2 (08:39→20:58)
[2017-05-29] MEDS: POTASSIUM CHLORIDE 20 MEQ TAB.PRT.SR PO SCH (08:40)
[2017-05-29 12:00] VITALS: BP_SYST 139
[2017-05-29 16:00] VITALS: BP_SYST 119
[2017-05-29 20:50] VITALS: BP_SYST 132
[2017-05-29] MEDS: MIRTAZAPINE 15 MG TABLET PO SCH (20:57)
[2017-05-30 00:11] VITALS: BP_SYST 132
[2017-05-30 02:13] VITALS: BP_SYST 128
[2017-05-30] MEDS: DILTIAZEM HCL 60 MG TABLET PO SCH ×3 (02:15→13:48)
[2017-05-30 08:00] VITALS: BP_SYST 134
[2017-05-30] MEDS: PREDNISONE 10 MG TABLET PO SCH (08:26)
[2017-05-30] MEDS: CARVEDILOL 12.5 MG TABLET (COREG) PO SCH (08:26)
[2017-05-30] MEDS: POTASSIUM CHLORIDE 20 MEQ TAB.PRT.SR PO SCH (08:26)
[2017-05-30] MEDS: FLUTICASONE PROPIONATE 50 mCg/SPRAY 16 GM NS SCH (08:26)
[2017-05-30] MEDS: LORATADINE 10 MG TABLET PO SCH (08:26)
[2017-05-30] MEDS: DIGOXIN 0.125 MG TABLET PO SCH (08:27)
[2017-05-30] MEDS: FUROSEMIDE 40 MG TABLET PO SCH (08:27)
[2017-05-30] MEDS: APIXABAN 2.5 MG TABLET PO SCH (08:28)
[2017-05-30] MEDS: BALSAM PERU/CASTOR OIL 60 GM OINT...G. TP SCH (08:40)
[2017-05-30] MEDS: MENTHOL/ZINC OXIDE 113 GM OINT. TP SCH ×3 (08:40→16:42)
[2017-05-30 12:08] VITALS: BP_SYST 118
[2017-05-30 14:38] VITALS: BP_SYST 123
[2017-05-30 16:43] VITALS: BP_SYST 127
== END 2017-05-30 18:05 | DRG 871 ==
LOC: SED 16:30 → STU 23:17 → SMU 05-14 09:59
PROVIDERS: ADMIT Internal Medicine; ATTEND Internal Medicine
PROC: 05HA33Z Insertion of Infusion Device into Left Brachial Vein, Percutaneous Approach (ICD-10-PCS; principal; 2017-05-23)
PROC: B54NZZA Ultrasonography of Left Upper Extremity Veins, Guidance (ICD-10-PCS; 2017-05-23)
DX: A41.9 Sepsis, unspecified organism (principal); J96.20 Acute and chronic respiratory failure, unspecified whether with hypoxia or hypercapnia; J69.0 Pneumonitis due to inhalation of food and vomit; E43 Unspecified severe protein-calorie malnutrition; L89.159 Pressure ulcer of sacral region, unspecified stage; F33.2 Major depressive disorder, recurrent severe without psychotic features; D68.59 Other primary thrombophilia; E83.52 Hypercalcemia; N39.0 Urinary tract infection, site not specified; M33.20 Polymyositis, organ involvement unspecified; G82.20 Paraplegia, unspecified; E66.9 Obesity, unspecified; Z16.24 Resistance to multiple antibiotics; F03.90 Unspecified dementia, unspecified severity, without behavioral disturbance, psychotic disturbance, mood disturbance, and anxiety; M35.3 Polymyalgia rheumatica; T38.0X5A Adverse effect of glucocorticoids and synthetic analogues, initial encounter; I11.0 Hypertensive heart disease with heart failure; I48.2 Chronic atrial fibrillation; I50.9 Heart failure, unspecified; E11.9 Type 2 diabetes mellitus without complications; B96.20 Unspecified Escherichia coli [E. coli] as the cause of diseases classified elsewhere; L27.0 Generalized skin eruption due to drugs and medicaments taken internally; L89.90 Pressure ulcer of unspecified site, unspecified stage; M19.90 Unspecified osteoarthritis, unspecified site; R62.7 Adult failure to thrive; Z74.01 Bed confinement status; Z86.711 Personal history of pulmonary embolism; Z86.718 Personal history of other venous thrombosis and embolism; Z88.0 Allergy status to penicillin; Z88.2 Allergy status to sulfonamides; Z90.81 Acquired absence of spleen; Y92.89 Other specified places as the place of occurrence of the external cause; Z79.84 Long term (current) use of oral hypoglycemic drugs; Z79.51 Long term (current) use of inhaled steroids; Z79.899 Other long term (current) drug therapy; Z88.5 Allergy status to narcotic agent; Z68.31 Body mass index [BMI] 31.0-31.9, adult
CPT/HCPCS: 36415; 36600; 71045; 71250-TC; 71260-TC; 80048; 80053; 80202-TC; 81000-TC; 82164; 82306; 82550-TC; 82803-TC; 82962; 83519; 83605; 83735-TC; 83880; 83970; 84439; 84443-TC; 84484; 85007; 85025; 85027; 85610-TC; 85730-TC; 86710; 87040-TC; 87081; 87086; 87186-TC; 87230-TC; 93005; 93306; 94640; 94760; 96361; 96365; 96375; 96376; 97110-GP; 97530-GP; 99291; C1751; J0692; J0713; J1160; J1200; J1450; J1580; J1815; J1940; J1956; J2185; J2270; J2930; J3370; J3480; J3490; J7030; J7050; J7060; J7120; J7512; Q0163; Q9964; Q9967

== ENCOUNTER 2017-08-28 12:35 | Inpatient (IN) | payer OTHER ==
[~2017-08-28] VITALS: Ht 165.1 cm; Wt 80.7 kg
[2017-08-28 12:35] VITALS: BP_SYST 117
[~2017-08-28 12:35] MED LIST: ACET-1010 PO; ALBU2.5V7 INH; AMIN30LI2 PO; APIX5TAB PO; BIOT5000 PO; CYAN250014 PO; GLUXR500 PO; MAGN400O4 PO; MULT PO; VITD2000 PO
[2017-08-28] MEDS ORDERED: NS 1000 ML IV.SOLN IV ONE (13:00)
[2017-08-28] MEDS ORDERED: VANCOMYCIN HCL 1,000 MG in NS 250 ML IV ONE (13:00)
[2017-08-28] MEDS ORDERED: VANCOMYCIN HCL 1000 MG/VIAL IV ONE ×3 (13:11→22:32)
[2017-08-28 13:22] LABS: BASOPHILS # (AUTO) 0.2 K/uL (0.0-0.2); BASOPHILS % (AUTO) 0.9 % (0.0-2.0); EOSINOPHILS # (AUTO) 0.2 K/uL (0.0-0.4); EOSINOPHILS % (AUTO) 0.9 % (0.0-4.0); HEMATOCRIT 37.7 % (36-48); HEMOGLOBIN 12.6 g/dL (12.0-16.0); LYMPHOCYTES # (AUTO) 1.7 K/uL (1.0-5.5); LYMPHOCYTES % (AUTO) 9.3 % (20.5-51.5); MEAN CORPUSCULAR HEMOGLOBIN 28 pg (27-31); MEAN CORPUSCULAR HGB CONC 33 % (32-36); MEAN CORPUSCULAR VOLUME 84 fL (79.0-98.0); MONOCYTES % (AUTO) 5.7 % (1.7-9.3); NEUTROPHILS # (AUTO) 15.1 K/uL (1.8-7.7); NEUTROPHILS % (AUTO) 83.2 % (40.0-70.0); PLATELET COUNT (AUTO) 589 K/uL (130-430); RED CELL DISTRIBUTION WIDTH 15.8 % (9.0-15.0); WHITE BLOOD COUNT (AUTO) 18.3 K/uL (4.8-10.8)
[2017-08-28 13:35] LABS: CALCIUM 8.8 mg/dL (8.4-11.0); CREATININE 0.89 mg/dL (0.55-1.30); POTASSIUM 4.5 mmol/L (3.5-5.1)
[2017-08-28 13:40] LABS: TOTAL BILIRUBIN 0.4 mg/dL (0.0-1.0)
[2017-08-28 13:43] LABS: INR 1.4 (0.8-1.2); PROTHROMBIN TIME 13.9 SECS (9.5-12.5)
[2017-08-28] MEDS ORDERED: MEROPENEM 1 GM IVPB PREMIX 50 ML IV ONE (13:45)
[2017-08-28] MEDS ORDERED: NS 500 ML IV ONE (14:00)
[2017-08-28] MEDS ORDERED: ALBU2.5V7 INH (14:53)
[2017-08-28] MEDS ORDERED: CEFE1FRO IV (14:53)
[2017-08-28] MEDS ORDERED: FURO-149 PO (14:53)
[2017-08-28] MEDS ORDERED: DILT60TA3 PO (14:53)
[2017-08-28] MEDS ORDERED: L.RH1CAP PO (14:53)
[2017-08-28] MEDS ORDERED: PRED5TAB PO (14:53)
[2017-08-28] MEDS ORDERED: ACET-2165 PO (14:53)
[2017-08-28] MEDS ORDERED: FLO110 INH (14:53)
[2017-08-28] MEDS ORDERED: GABA-529 PO (14:53)
[2017-08-28] MEDS ORDERED: POTA-118 PO (14:53)
[2017-08-28] MEDS ORDERED: LORA10TA7 PO (14:53)
[2017-08-28] MEDS ORDERED: SENN-153 PO (14:53)
[2017-08-28] MEDS ORDERED: LEVA1.25 NEB (14:53)
[2017-08-28] MEDS ORDERED: BISA-79 PO (14:53)
[2017-08-28] MEDS ORDERED: DIGO125T79 PO (14:53)
[2017-08-28] MEDS ORDERED: POLY119P15 PO (14:53)
[2017-08-28] MEDS ORDERED: TRAM50TA92 PO ×2 (14:53)
[2017-08-28] MEDS ORDERED: ASCO500T20 PO (14:53)
[2017-08-28] MEDS ORDERED: NA P118E RC (14:53)
[2017-08-28] MEDS ORDERED: PANT20TA2 PO (14:53)
[2017-08-28] MEDS ORDERED: GLU500 PO (14:53)
[2017-08-28] MEDS ORDERED: MIRT15TA7 PO (14:53)
[2017-08-28] MEDS ORDERED: FOLI-43 PO (14:53)
[2017-08-28] MEDS ORDERED: NPH,100V SUBCUT (14:53)
[2017-08-28] MEDS ORDERED: CARV12.548 PO (14:53)
[2017-08-28 15:16] LABS: BILIRUBIN,URINE NEGATIVE (NEGATIVE); BLOOD, URINE 2+ (NEGATIVE); CLARITY/URINE HAZY (CLEAR); COLOR,URINE YELLOW (YELLOW); GLUCOSE,URINE NEGATIVE (NEGATIVE); KETONES,URINE NEGATIVE (NEGATIVE); LEUKOCYTE ESTERASE ,URINE 3+ (NEGATIVE); PROTEIN URINE 2+ (NEGATIVE)
[2017-08-28 15:17] LABS: NITRITE, URINE NEGATIVE (NEGATIVE); UROBILINOGEN,URINE 0.2 (0.2-1.0)
[2017-08-28 15:18] LABS: BACTERIA,URINE MODERATE /HPF (None Seen); MUCUS,URINE None Seen /LPF (None Seen); WBC,URINE 80-100 /HPF (0-3); YEAST,URINE Few /HPF (None Seen)
[2017-08-28 18:09] VITALS: BP_SYST 115
[2017-08-28 19:40] VITALS: BP_SYST 124
[2017-08-28] MEDS ORDERED: IPRATROPIUM BROM 0.5 MG/2.5 ML VIAL.NEB (ATROVENT) INH PRN (19:45)
[2017-08-28] MEDS ORDERED: ALBUTEROL SULFATE 0.083% 2.5 MG/3 ML VIAL.NEB INH PRN (19:45)
[2017-08-28] MEDS ORDERED: DEXTROSE 50% JECT 50 ML DISP.SYRIN IVP PRN (19:45)
[2017-08-28] MEDS ORDERED: MEROPENEM 500 MG VIAL IV ONE (20:51)
[2017-08-28] MEDS: MEROPENEM 500 MG in NS 50 ML IV SCH (21:33)
[2017-08-28] MEDS: MIRTAZAPINE 15 MG TABLET PO SCH (21:36)
[2017-08-28] MEDS: CARVEDILOL 12.5 MG TABLET (COREG) PO SCH (21:36)
[2017-08-28] MEDS: GABAPENTIN 100 MG CAPSULE PO SCH (21:36)
[2017-08-28] MEDS: ALBUTEROL SULFATE 0.083% 2.5 MG/3 ML VIAL.NEB INH SCH (23:30)
[2017-08-28] MEDS: IPRATROPIUM BROM 0.5 MG/2.5 ML VIAL.NEB (ATROVENT) INH SCH (23:30)
[2017-08-29 00:06] VITALS: BP_SYST 125
[2017-08-29 00:21] VITALS: BP_SYST 124
[2017-08-29] MEDS ORDERED: VANCOMYCIN HCL 1 GM/NS PREMIX 250 ML IV ONE (02:00)
[2017-08-29] MEDS: IPRATROPIUM BROM 0.5 MG/2.5 ML VIAL.NEB (ATROVENT) INH SCH ×6 (03:15→23:00)
[2017-08-29] MEDS: ALBUTEROL SULFATE 0.083% 2.5 MG/3 ML VIAL.NEB INH SCH ×6 (03:15→23:00)
[2017-08-29] MEDS: MEROPENEM 500 MG in NS 50 ML IV SCH ×3 (06:46→22:17)
[2017-08-29 08:00] VITALS: BP_SYST 132
[2017-08-29] MEDS: BALSAM PERU/CASTOR OIL 60 GM OINT...G. TP SCH ×3 (09:00→22:16)
[2017-08-29] MEDS ORDERED: DILTIAZEM HCL 60 MG TABLET PO SCH (09:00)
[2017-08-29] MEDS: GABAPENTIN 100 MG CAPSULE PO SCH ×2 (10:02→22:14)
[2017-08-29] MEDS: CARVEDILOL 12.5 MG TABLET (COREG) PO SCH ×2 (10:03→22:16)
[2017-08-29] MEDS: DIGOXIN 0.125 MG TABLET PO SCH (10:03)
[2017-08-29] MEDS: FUROSEMIDE 40 MG TABLET PO SCH (10:03)
[2017-08-29] MEDS ORDERED: BALSAM PERU/CASTOR OIL 60 GM OINT...G. TP ONE (11:00)
[2017-08-29 11:19] VITALS: BP_SYST 122
[2017-08-29 15:17] VITALS: BP_SYST 117
[2017-08-29] MEDS: INSULIN REGULAR, HUMAN 100 UNITS/ML, 10 ML VIAL (novoLIN R) SUBCUT PRN (17:47)
[2017-08-29 20:03] VITALS: BP_SYST 139
[2017-08-29] MEDS: MIRTAZAPINE 15 MG TABLET PO SCH (22:14)
[2017-08-30 00:05] VITALS: BP_SYST 139
[2017-08-30] MEDS: VANCOMYCIN HCL 1,000 MG in NS 250 ML IV SCH ×2 (01:30→23:15)
[2017-08-30] MEDS: IPRATROPIUM BROM 0.5 MG/2.5 ML VIAL.NEB (ATROVENT) INH SCH ×6 (03:00→23:10)
[2017-08-30] MEDS: ALBUTEROL SULFATE 0.083% 2.5 MG/3 ML VIAL.NEB INH SCH ×6 (03:00→23:10)
[2017-08-30] MEDS: MEROPENEM 500 MG in NS 50 ML IV SCH ×3 (05:29→21:26)
[2017-08-30 08:11] VITALS: BP_SYST 122
[2017-08-30] MEDS: FUROSEMIDE 40 MG TABLET PO SCH (08:53)
[2017-08-30] MEDS: DIGOXIN 0.125 MG TABLET PO SCH (08:53)
[2017-08-30] MEDS: GABAPENTIN 100 MG CAPSULE PO SCH ×2 (08:54→21:28)
[2017-08-30] MEDS: CARVEDILOL 12.5 MG TABLET (COREG) PO SCH ×2 (08:54→21:27)
[2017-08-30 08:55] LABS: HEMATOCRIT 37.2 % (36-48); HEMOGLOBIN 12.7 g/dL (12.0-16.0); MEAN CORPUSCULAR HEMOGLOBIN 29 pg (27-31); MEAN CORPUSCULAR HGB CONC 34 % (32-36); MEAN CORPUSCULAR VOLUME 84 fL (79.0-98.0); PLATELET COUNT (AUTO) 589 K/uL (130-430); RED BLOOD CELL COUNT(AUTO) 4.44 MIL/uL (4.2-6.2); RED CELL DISTRIBUTION WIDTH 15.9 % (9.0-15.0); WHITE BLOOD COUNT (AUTO) 17.7 K/uL (4.8-10.8)
[2017-08-30] MEDS: BALSAM PERU/CASTOR OIL 60 GM OINT...G. TP SCH ×3 (09:00→21:35)
[2017-08-30 09:03] LABS: ALBUMIN 1.9 g/dL (3.4-4.8); CALCIUM 8.9 mg/dL (8.4-11.0); CREATININE 0.78 mg/dL (0.55-1.30); POTASSIUM 3.2 mmol/L (3.5-5.1); TOTAL BILIRUBIN 0.4 mg/dL (0.0-1.0)
[2017-08-30 10:52] LABS: ATYPICAL LYMPHOCYTES % 3 % (0-0); BAND % (MANUAL) 0 % (0-6); BASOPHILS % (MANUAL) 1 % (0-2); EOSINOPHILS % (MANUAL) 5 % (0-7); LYMPHOCYTES % (MANUAL) 17 % (20-46); MONOCYTES % (MANUAL) 9 % (0-11)
[2017-08-30] MEDS: INSULIN REGULAR, HUMAN 100 UNITS/ML, 10 ML VIAL (novoLIN R) SUBCUT PRN ×2 (12:08→17:33)
[2017-08-30 15:02] VITALS: BP_SYST 132
[2017-08-30] MEDS ORDERED: ENOXAPARIN SODIUM 60 MG/0.6 ML SYRINGE SUBCUT SCH (21:00)
[2017-08-30] MEDS: MIRTAZAPINE 15 MG TABLET PO SCH (21:28)
[2017-08-31 01:49] VITALS: BP_SYST 122
[2017-08-31] MEDS: ALBUTEROL SULFATE 0.083% 2.5 MG/3 ML VIAL.NEB INH SCH ×6 (03:00→23:00)
[2017-08-31] MEDS: IPRATROPIUM BROM 0.5 MG/2.5 ML VIAL.NEB (ATROVENT) INH SCH ×6 (03:00→23:00)
[2017-08-31] MEDS: MEROPENEM 500 MG in NS 50 ML IV SCH ×3 (04:56→21:23)
[2017-08-31 08:00] VITALS: BP_SYST 140
[2017-08-31 08:10] LABS: ALBUMIN 1.6 g/dL (3.4-4.8); CALCIUM 8.7 mg/dL (8.4-11.0); CREATININE 0.67 mg/dL (0.55-1.30); POTASSIUM 3.2 mmol/L (3.5-5.1); TOTAL BILIRUBIN 0.4 mg/dL (0.0-1.0)
[2017-08-31 08:22] LABS: EOSINOPHILS # (AUTO) 0.9 K/uL (0.0-0.4); HEMOGLOBIN 11.8 g/dL (12.0-16.0)
[2017-08-31 08:43] LABS: BASOPHILS # (AUTO) 0.1 K/uL (0.0-0.2)
[2017-08-31 08:51] LABS: BASOPHILS % (AUTO) 0.7 % (0.0-2.0); EOSINOPHILS % (AUTO) 5.4 % (0.0-4.0); HEMATOCRIT 34.9 % (36-48); LYMPHOCYTES # (AUTO) 2.8 K/uL (1.0-5.5); LYMPHOCYTES % (AUTO) 16.2 % (20.5-51.5); MEAN CORPUSCULAR HEMOGLOBIN 28 pg (27-31); MEAN CORPUSCULAR HGB CONC 34 % (32-36); MEAN CORPUSCULAR VOLUME 84 fL (79.0-98.0); MONOCYTES # (AUTO) 1.6 K/uL (0.0-1.0); NEUTROPHILS # (AUTO) 12.1 K/uL (1.8-7.7); NEUTROPHILS % (AUTO) 68.7 % (40.0-70.0); PLATELET COUNT (AUTO) 570 K/uL (130-430); RED BLOOD CELL COUNT(AUTO) 4.15 MIL/uL (4.2-6.2); RED CELL DISTRIBUTION WIDTH 15.7 % (9.0-15.0); WHITE BLOOD COUNT (AUTO) 17.5 K/uL (4.8-10.8)
[2017-08-31] MEDS: BALSAM PERU/CASTOR OIL 60 GM OINT...G. TP SCH ×3 (09:00→21:00)
[2017-08-31] MEDS: CARVEDILOL 12.5 MG TABLET (COREG) PO SCH ×2 (09:47→21:20)
[2017-08-31] MEDS: DIGOXIN 0.125 MG TABLET PO SCH (09:48)
[2017-08-31] MEDS: GABAPENTIN 100 MG CAPSULE PO SCH ×2 (09:48→21:20)
[2017-08-31] MEDS: FUROSEMIDE 40 MG TABLET PO SCH (09:48)
[2017-08-31] MEDS ORDERED: FLUCONAZOLE 100 MG TABLET (DIFLUCAN) PO ONE (10:45)
[2017-08-31 11:08] VITALS: BP_SYST 109
[2017-08-31 15:20] VITALS: BP_SYST 125
[2017-08-31] MEDS ORDERED: POTASSIUM CHLORIDE 20 MEQ TAB.PRT.SR PO ONE (15:45)
[2017-08-31 20:00] VITALS: BP_SYST 161
[2017-08-31] MEDS: MIRTAZAPINE 15 MG TABLET PO SCH (21:19)
[2017-08-31] MEDS: APIXABAN 2.5 MG TABLET PO SCH (21:23)
[2017-08-31 22:05] VITALS: BP_SYST 133
[2017-09-01 01:45] VITALS: BP_SYST 130
[2017-09-01] MEDS: MEROPENEM 500 MG in NS 50 ML IV SCH (05:07)
[2017-09-01] MEDS: ALBUTEROL SULFATE 0.083% 2.5 MG/3 ML VIAL.NEB INH SCH ×4 (07:00→19:45)
[2017-09-01] MEDS: IPRATROPIUM BROM 0.5 MG/2.5 ML VIAL.NEB (ATROVENT) INH SCH ×4 (07:00→19:45)
[2017-09-01 08:10] VITALS: BP_SYST 151
[2017-09-01] MEDS ORDERED: FLUCONAZOLE 100 MG TABLET (DIFLUCAN) PO SCH (09:00)
[2017-09-01] MEDS: DIGOXIN 0.125 MG TABLET PO SCH (09:01)
[2017-09-01] MEDS: BALSAM PERU/CASTOR OIL 60 GM OINT...G. TP SCH ×2 (09:01)
[2017-09-01] MEDS: FUROSEMIDE 40 MG TABLET PO SCH (09:02)
[2017-09-01] MEDS: CARVEDILOL 12.5 MG TABLET (COREG) PO SCH (09:02)
[2017-09-01] MEDS: GABAPENTIN 100 MG CAPSULE PO SCH (09:03)
[2017-09-01] MEDS: APIXABAN 2.5 MG TABLET PO SCH (09:05)
[2017-09-01 11:27] VITALS: BP_SYST 133
[2017-09-01] MEDS: INSULIN REGULAR, HUMAN 100 UNITS/ML, 10 ML VIAL (novoLIN R) SUBCUT PRN (13:00)
[2017-09-01] MEDS ORDERED: VANCOMYCIN HCL 1.25 GM/NS 250 ML IV SCH (13:00)
[2017-09-01 15:07] VITALS: BP_SYST 136
[2017-09-01] MEDS ORDERED: CEFEPIME 1 GM in D5W 50 ML IV ONE (15:15)
[2017-09-01] MEDS ORDERED: MERI500 IV (16:51)
[2017-09-01] MEDS ORDERED: VANC125C10 PO (16:53)
[2017-09-01] MEDS ORDERED: VANC1.257 IV (16:54)
[2017-09-01] MEDS ORDERED: MEROPENEM 500 MG in NS 50 ML IV ONE (17:00)
[2017-09-01 18:57] VITALS: BP_SYST 136
[2017-09-01 20:00] VITALS: BP_SYST 135
[2017-09-01] MEDS ORDERED: CEFEPIME 1 GM in D5W 50 ML IV SCH (21:00)
[2017-09-02] MEDS ORDERED: MEROPENEM 500 MG in NS 50 ML IV SCH (06:00)
== END 2017-09-01 20:56 | DRG 314 ==
LOC: SED 12:35 → STU 14:29
PROVIDERS: ADMIT Internal Medicine Hospice and Palliative Medicine; ATTEND Internal Medicine Hospice and Palliative Medicine
DX: T80.211A Bloodstream infection due to central venous catheter, initial encounter (principal); A41.81 Sepsis due to Enterococcus; R65.20 Severe sepsis without septic shock; L97.919 Non-pressure chronic ulcer of unspecified part of right lower leg with unspecified severity; L03.116 Cellulitis of left lower limb; M33.20 Polymyositis, organ involvement unspecified; L97.929 Non-pressure chronic ulcer of unspecified part of left lower leg with unspecified severity; B37.49 Other urogenital candidiasis; L03.115 Cellulitis of right lower limb; Y83.8 Other surgical procedures as the cause of abnormal reaction of the patient, or of later complication, without mention of misadventure at the time of the procedure; H54.62 Unqualified visual loss, left eye, normal vision right eye; E86.0 Dehydration; E11.65 Type 2 diabetes mellitus with hyperglycemia; E66.9 Obesity, unspecified; I48.2 Chronic atrial fibrillation; I11.0 Hypertensive heart disease with heart failure; I50.9 Heart failure, unspecified; E11.42 Type 2 diabetes mellitus with diabetic polyneuropathy; E11.622 Type 2 diabetes mellitus with other skin ulcer; L89.90 Pressure ulcer of unspecified site, unspecified stage; E87.6 Hypokalemia; Z88.0 Allergy status to penicillin; Z88.8 Allergy status to other drugs, medicaments and biological substances; Z88.2 Allergy status to sulfonamides; Z86.718 Personal history of other venous thrombosis and embolism; Z86.711 Personal history of pulmonary embolism; Z87.440 Personal history of urinary (tract) infections; Z79.899 Other long term (current) drug therapy; Y92.89 Other specified places as the place of occurrence of the external cause; Z90.49 Acquired absence of other specified parts of digestive tract; Z91.040 Latex allergy status; Z79.01 Long term (current) use of anticoagulants; Z68.29 Body mass index [BMI] 29.0-29.9, adult; Z74.01 Bed confinement status
CPT/HCPCS: 36415; 71045; 76700-TC; 80053; 81000-TC; 82962; 83605; 84134; 84484; 85007; 85025; 85027; 85610-TC; 85730-TC; 87040-TC; 87070-TC; 87075-TC; 87081; 87086; 87186-TC; 93005; 93923; 93970; 94640; 94760; 99291; J0692; J1650; J1815; J2185; J3370; J7030; J7040; J7050; J7060; J7613

== ENCOUNTER 2017-09-10 13:37 | Inpatient (IN) | payer OTHER ==
[~2017-09-10] VITALS: Ht 165.1 cm; Wt 81.6 kg
[2017-09-10 13:37] VITALS: BP_SYST 119
[~2017-09-10 13:37] MED LIST changes: +ACET-2165 PO; +ASCO500T20 PO; +BISA-79 PO; +CARV12.548 PO; +DIGO125T79 PO; +DILT60TA3 PO; +FLO110 INH; +FOLI-43 PO; +FURO-149 PO; +GABA-529 PO; +GLU500 PO; +L.RH1CAP PO; +LEVA1.25 NEB; +LORA10TA7 PO; +MERI500 IV; +MIRT15TA7 PO; +NA P118E RC; +NPH,100V SUBCUT; +PANT20TA2 PO; +POLY119P15 PO; +POTA-118 PO; +PRED5TAB PO; +SENN-153 PO; +TRAM50TA92 PO; +VANC1.257 IV
--- NOTE | 2017-09-10 13:37 | NUR ---
Placed in room 01. Placed on cardiac surgeon, blood pressure machine and pulse oximeter. To gown for exam. Side rails up. Pt BIB sq 154 from [facility]
--- NOTE | 2017-09-10 13:39 | NUR ---
Pacer pads placed on chest. Set to monitor at this time. Pt is NOT being paced. Denies chest pain. HR 38 - 54 afib
--- NOTE | 2017-09-10 13:40 | NUR ---
ER Dr. Alcocer at bedside examining patient.
--- NOTE | 2017-09-10 13:50 | NUR ---
LUKE single lumen PICC; flushed with 20ml NS and good patency noted; NS 1L bolus infusing
--- NOTE | 2017-09-10 14:12 | NUR ---
Phleb at bedside for blood draw. Picc to LUE able to flush but was unable to draw blood.
[2017-09-10] MEDS ORDERED: IPRATROPIUM/ALBUTEROL SULFATE 3 ML AMPUL.NEB INH ONE (14:15)
--- NOTE | 2017-09-10 14:15 | NUR ---
RT at bedside for ABG and breathing tx.
[2017-09-10 14:32] LABS: BASOPHILS # (AUTO) 0.2 K/uL (0.0-0.2); BASOPHILS % (AUTO) 0.9 % (0.0-2.0); EOSINOPHILS # (AUTO) 0.8 K/uL (0.0-0.4); EOSINOPHILS % (AUTO) 3.5 % (0.0-4.0); HEMATOCRIT 39.6 % (36-48); HEMOGLOBIN 13.2 g/dL (12.0-16.0); LYMPHOCYTES # (AUTO) 2.1 K/uL (1.0-5.5); LYMPHOCYTES % (AUTO) 8.6 % (20.5-51.5); MEAN CORPUSCULAR HEMOGLOBIN 28 pg (27-31); MEAN CORPUSCULAR HGB CONC 33 % (32-36); MEAN CORPUSCULAR VOLUME 84 fL (79.0-98.0); MONOCYTES # (AUTO) 1.8 K/uL (0.0-1.0); MONOCYTES % (AUTO) 7.5 % (1.7-9.3); NEUTROPHILS # (AUTO) 19.2 K/uL (1.8-7.7); PLATELET COUNT (AUTO) 663 K/uL (130-430); RED BLOOD CELL COUNT(AUTO) 4.72 MIL/uL (4.2-6.2); WHITE BLOOD COUNT (AUTO) 24.1 K/uL (4.8-10.8)
[2017-09-10 15:03] LABS: NEUTROPHILS % (AUTO) 79.5 % (40.0-70.0)
[2017-09-10 15:14] LABS: INR 1.3 (0.8-1.2)
[2017-09-10 15:18] LABS: ALBUMIN 2.2 g/dL (3.4-4.8); CALCIUM 8.9 mg/dL (8.4-11.0); CREATININE 0.93 mg/dL (0.55-1.30); POTASSIUM 3.9 mmol/L (3.5-5.1); TOTAL BILIRUBIN 0.3 mg/dL (0.0-1.0)
[2017-09-10] MEDS ORDERED: NACL 0.9% 1,000 ML IV ONE (15:45)
[2017-09-10 15:57] LABS: BILIRUBIN,URINE NEGATIVE (NEGATIVE); CLARITY/URINE SL CLOUDY (CLEAR); COLOR,URINE YELLOW (YELLOW); GLUCOSE,URINE NEGATIVE (NEGATIVE); KETONES,URINE NEGATIVE (NEGATIVE); LEUKOCYTE ESTERASE ,URINE 1+ (NEGATIVE); NITRITE, URINE NEGATIVE (NEGATIVE); PH,URINE 5.5 (5.0-8.0); PROTEIN URINE TRACE (NEGATIVE); UROBILINOGEN,URINE 0.2 (0.2-1.0)
[2017-09-10 15:59] LABS: BLOOD, URINE TRACE (NEGATIVE)
[2017-09-10 16:03] LABS: BACTERIA,URINE MODERATE /HPF (None Seen); RBC,URINE 0-3 /HPF (0-3); WBC,URINE 50-80 /HPF (0-3)
--- NOTE | 2017-09-10 16:33 | NUR ---
Pt refusing second lactic acid. HERNESTO MARTINEZ made aware.
--- NOTE | 2017-09-10 16:45 | NUR ---
Patient's code status is Full code paperwork completed and placed in chart. Patient arrived with POLST in chart. Signed 04/15/17.
--- NOTE | 2017-09-10 16:50 | NUR ---
Medication reconciliation completed with information provided by [facility]. Any prior medication reconciliation on file was reviewed and corrected.
--- NOTE | 2017-09-10 17:00 | NUR ---
Patient will be admitted to care of Dr. Celis. Admitted to tele unit. Will go to room 102A. Summary report printed. Report will be given at bedside. Transfer to tele via ACLS protocol. Licensed nurse present. IV present no signs or symptoms of infiltration.
--- NOTE | 2017-09-10 17:09 | NUR ---
Admission Note Received patient from ER with diagnosis of urosepsis. Initial Plan of Care discussed-patient verbalized understanding. Oriented to room, call light, pain management and safety.
[2017-09-10 17:45] VITALS: BP_SYST 152
--- NOTE | 2017-09-10 17:55 | NUR ---
Rounds Patient is currently sitting in bed. No signs of distress noted at the moment.
[2017-09-10] MEDS ORDERED: DEXTROSE 50% JECT 50 ML DISP.SYRIN IVP PRN (18:30)
[2017-09-10] MEDS ORDERED: ALBUTEROL SULFATE 0.083% 2.5 MG/3 ML VIAL.NEB INH PRN ×2 (18:30)
[2017-09-10] MEDS: INSULIN REGULAR, HUMAN 100 UNITS/ML, 10 ML VIAL (novoLIN R) SUBCUT PRN (18:59)
--- NOTE | 2017-09-10 19:00 | NUR ---
Closing Note Patient is currently eating dinner in bed. No signs of distress noted at the moment. IV is on the RAC 22g saline locked. Patient also has a LUKE PICC line. Najera cath is draining yellow concentrated urine. Call light is within reach and bed is in low position. Will endorse care to the oncoming nurse.
--- NOTE | 2017-09-10 19:45 | NUR ---
Opening note/Wound photo taken Pt AAOx4. VSS. No s/s distress noted. L. Bicep picc line noted with redness at site, dressing C/D/I last changed 09/08/17. IV R. FA 22G saline lock clear, patent. Najera catheter noted with cloudy, yellow urine. Pt refused to have it secured to skin. Photo taken of redness on Calvin buttocks, dry, no open wound noted. Z guard applied. L. lower leg wound dressing C/D/I, pt refused to have it photographed at this time. Pt states wound care nurse just changed the dressing. Calvin legs elevated on pillow. Call light within reach. Will continue to monitor.
[2017-09-10 20:00] VITALS: BP_SYST 118
[2017-09-10] MEDS: CHOLECALCIFEROL (VITAMIN D3) 2,000 UNIT TABLET PO SCH (20:31)
[2017-09-10] MEDS: MIRTAZAPINE 15 MG TABLET PO SCH (20:31)
[2017-09-10] MEDS: LEVOFLOXACIN 500 MG/D5W 100 ML IV SCH (20:31)
[2017-09-10] MEDS: GABAPENTIN 100 MG CAPSULE PO SCH (20:32)
[2017-09-10] MEDS: CARVEDILOL 12.5 MG TABLET (COREG) PO SCH (20:32)
[2017-09-10 20:33] VITALS: BP_SYST 152
--- NOTE | 2017-09-10 20:58 | NUR ---
Paged Dr. Celis dialed [phone], s/w [place].
--- NOTE | 2017-09-10 21:34 | NUR ---
Second Call for Dr. Celis dialed [phone], s/w Fay.
--- NOTE | 2017-09-10 21:45 | NUR ---
MD norberto Augustin Received callback from Dr. Celis for Pt requesting her Eliquis 5mg PO that she takes for blood thinner. Per ok to continue.
[2017-09-10] MEDS ORDERED: APIXABAN 2.5 MG TABLET PO ONE (22:30)
[2017-09-11 00:01] VITALS: BP_SYST 139
--- NOTE | 2017-09-11 00:11 | NUR ---
BS checked Pt asleep, easily arousable. BS checked 119. No insulin indicated at this time. Repositioned. Call light within reach. To monitor.
--- NOTE | 2017-09-11 02:30 | NUR ---
Rounds Pt asleep. No s/s distress noted. Call light/items remains within reach. Safety precaution in place. To monitor.
--- NOTE | 2017-09-11 04:00 | NUR ---
Rounds Pt asleep, easily arousable. No s/s distress or discomfort noted. Pt repositioned. Safety precaution in place. Call light/items within reach. Will continue to monitor.
--- NOTE | 2017-09-11 06:20 | NUR ---
Closing notes Pt asleep, easily arousable. No s/s distress or discomfort noted. Pt on O2 2L via NC. Pt repositioned. Calvin legs maintained elevated on a pillow. L. lower leg dressing remains c/d/i. IV right arm saline lock clear, patent. All needs met. Call light within reach. Blood sugar checked 102. No indication for insulin. Contact isolation precaution maintained. To endorsed to am nurse.
--- NOTE | 2017-09-11 07:15 | NUR ---
INITIAL NOTE RECEIVED REPORT AND PATIENT FROM PALEOLOGIST NURSE. PATIENT REMAINS AWAKE, ALERT, VERBALLY RESPONSIVE. DENIES ANY PAIN AT THIS TIME. ON O2 AT 2LPM VIA NC. VS STABLE. SAFETY MEASURES MAINTAINED, BED LOCKED, ON LOWEST POSITION, BED ALARM ACTIVATED. CALL LIGHT WITHIN REACH, WILL CONTINUE TO MONITOR.
[2017-09-11 08:00] VITALS: BP_SYST 119
[2017-09-11] MEDS: LORATADINE 10 MG TABLET PO SCH (08:29)
[2017-09-11] MEDS: PREDNISONE 5 MG TABLET PO SCH (08:29)
[2017-09-11] MEDS: MULTIVITAMINS TAB 1 TABLET PO SCH (08:30)
[2017-09-11] MEDS: POTASSIUM CHLORIDE 10 MEQ TAB.PRT.SR PO SCH (08:30)
[2017-09-11] MEDS: GABAPENTIN 100 MG CAPSULE PO SCH ×2 (08:30→20:31)
[2017-09-11] MEDS: APIXABAN 2.5 MG TABLET PO SCH ×2 (08:34→20:34)
[2017-09-11] MEDS: FOLIC ACID 1 MG TABLET PO SCH (08:35)
[2017-09-11] MEDS: ASCORBIC ACID 500 MG TABLET PO SCH (08:35)
[2017-09-11] MEDS: DILTIAZEM HCL 60 MG TABLET PO SCH (08:36)
[2017-09-11] MEDS: CARVEDILOL 12.5 MG TABLET (COREG) PO SCH ×2 (08:36→20:29)
[2017-09-11] MEDS: DIGOXIN 0.125 MG TABLET PO SCH (08:36)
[2017-09-11] MEDS: MILK OF MAGNESIA 30 ML UDC PO SCH (08:37)
--- NOTE | 2017-09-11 09:30 | NUR ---
DR. CAAL AT BEDSIDE DR. CAAL MAKING ROUNDS, TALKED AND ASSESSED THE PATIENT. NEW ORDERS GIVEN. PATIENT IS AWARE.
--- NOTE | 2017-09-11 09:42 | NUR ---
CONSULTATION CALLED REASON FOR CONSULTATION:SEPSIS WAS CONSULT CALLED?Y PERSON WHO WAS NOTIFIED:SHITAL CONSULTING PHYSICIAN:SIGRID BERRY RN HOME HEALTH SPECIALTY:INFECTIOUS DISEASE RN HOME HEALTH PHONE NUMBER:[phone] ORDERING PHYSICIAN:ARIEL PRINGLE
--- NOTE | 2017-09-11 09:47 | NUR ---
CONSULTATION CALLED REASON FOR CONSULTATION:CHF WAS CONSULT CALLED?Y PERSON WHO WAS NOTIFIED:JAYLYN CONSULTING PHYSICIAN:CHRISS WILSON HEEL SPRAYER FIRST SPECIALTY:CARDIO HEEL SPRAYER FIRST PHONE NUMBER:[phone] ORDERING PHYSICIAN:ARIEL PRINGLE
[2017-09-11] MEDS ORDERED: FUROSEMIDE 40 MG/4 ML VIAL IVP ONE (10:00)
--- NOTE | 2017-09-11 10:38 | NUR ---
Nutrition Update Kulwant Scale 13 noted. Pt admitted for urosepsis. Diet: [facility] BMI: 30 kg/m2 RD to follow per nutrition care standards.
--- NOTE | 2017-09-11 10:40 | NUR ---
DR. CARRION AT BEDSIDE DR. CARRION MAKING ROUNDS, TALKED AND ASSESSED THE PATIENT. NO NEW ORDERS GIVEN.
[2017-09-11 12:30] VITALS: BP_SYST 104
--- NOTE | 2017-09-11 14:30 | NUR ---
WOUND TREATMENT ASSESSED AND CHANGED WOUND DRESSINGS WITH SEAN WOUND HUMANITIES DIVISION CHAIR.
--- NOTE | 2017-09-11 14:40 | NUR ---
WOUND EVALUATION: Wound Consult received from Dr. Celis. Thank you, Dr. Celis, for the consult. Patient received in a Blue Grass Bed with an IsoFlex SOFIE mattress with low air loss therapy initiated, awake, sleepy, oriented. Patient is unable to turn in bed independently. Kulwant Score is a 13. Past Medical History: A-Fib, DVT, PE, Diabetes Mellitus, Cholecystectomy, Splenectomy (in childhood). Recent Labs: WBC 24.1, RBC 4.72, hemoglobin 13.2, hematocrit 39.6, chloride 108, BUN 32, Creat 0.93, glucose 193, alkaline phosphatase 133, total protein 5.9, albumin 2.2, PT 13.0, INR 1.3. Microbiology: Blood culture results 2 in progress. Urine culture results in progress. MRSA screen results in progress. Intrinsic factors that delay wound healing: Diabetes mellitus, hypoalbuminemia. Extrinsic factors that delay wound healing: Decreased mobility. Wound Assessment: 1. Right distal medial lower extremity: Venous insufficiency ulcer, present on admission. Wound bed has 95% dark red tissue, 5% dark discolored tissue. No odor, no drainage. Dry, stable. 3+ non-pitting edema present in extremity, 2+ non-pitting edema in foot. Wound measures 3.9 cm x 1.7 cm. Recommend: Cleanse wound with normal saline. Apply moisture barrier cream onto wound and royce-wound. Cover with non-adhesive foam dressings. Wrap with beverly wrap. Perform wound care daily, and as needed for dressing soiling or dislodgement. 2. Right distal lateral lower extremity: Venous insufficiency ulcer, present on admission. Superior 2/3 of wound site has brown eschar. Distal 1/3 aspect of wound site has 90% red tissue, 10% yellow tissue. No odor, small sanguineous drainage. Periwound intact. Surrounding tissue has brown discoloration, possibly from Betadine. Mild calor present. 3+ non-pitting edema present in extremity, 2+ non-pitting edema in foot. Open wound measures 3.0 cm x 3.3 cm. Total wound area measures 7.5 cm x 3.0 cm. Recommend: Cleanse wound with normal saline. Apply moisture barrier cream onto royce-wound. Apply Venelex ointment onto wound bed. Cover with non-adhesive foam dressing. Wrap with beverly wrap. Perform wound care daily, and as needed for dressing soiling or dislodgement. 3. Right outer buttock: Chronic wound, present on admission. Wound bed has 70% black eschar, 30% dark red eschar. No odor, no drainage. Recommend: Cleanse involved area with mild soap and water. Pat dry. Apply moisture barrier cream to involved area. Cover wound with nonadhesive foam dressing, then secure with paper tape. Perform site care daily, and as needed for dressing soiling or dislodgment. 4. Buttocks, Sacral areas: Multiple multiple areas of scar tissue, present on admission. Recommend: Cleanse involved areas with mild soap and water. Pat dry. Apply moisture barrier cream to involved areas. Perform site care 4 times a day, and as needed for soiling. Also recommend: Reposition patient [id number]-[id number] only every 2 hours with pillow support and off-load pressure areas with pillows for pressure re-distribution. Offload, elevate and float bilateral heels with pillows. Perform skin care and monitor skin integrity Q shift. Use moisture barrier cream on buttocks and other moisture susceptible areas QID and as needed for soiling. Maintain patient on a low air-loss mattress.
[2017-09-11 16:49] VITALS: BP_SYST 115
--- NOTE | 2017-09-11 17:10 | NUR ---
NURSING NOTES PATIENT IN BED, AWAKE ALERT, VERBALLY RESPONSIVE. DENIES ANY PAIN AT THIS TIME. BLOOD SUGAR CHECKED WITH RESULT OF 142, NO INSULIN GIVEN BASED ON THE SLIDING SCALE ORDERED. CALL LIGHT WITHIN REACH WILL CONTINUE TO MONITOR.
[2017-09-11] MEDS: GENTAMICIN 120 MG/ ISO-OSM 100 ML PREMIX IV SCH (18:08)
[2017-09-11] MEDS: FUROSEMIDE 40 MG/4 ML VIAL IVP SCH (18:09)
--- NOTE | 2017-09-11 18:25 | NUR ---
CLOSING NOTE PATIENT IN BED, AWAKE, ALERT, VERBALLY RESPONSIVE. STARTED PATIENT ON NEW IV ANTIBIOTIC ORDERED BY DR. PENA VIA PUMP. IV SITE ON THE RIGHT FOREARM WITH 22GAUGE BUT THE SITE STARTED TO SWELL UP AND THE PATIENT STARTED COMPLAINING OF PAIN. STOP IV ANTIBIOTIC INFUSION AND RESTARTED ON THE RIGHT UPPER ARM PICCLINE. UNABLE TO REINSERT NEW IV LINE. WILL GIVE REPORT AND ENDORSEMENT TO SECURITY REP NURSE.
[2017-09-11 19:25] VITALS: BP_SYST 118
--- NOTE | 2017-09-11 19:25 | NUR ---
OPENING NOTE Received bedside sbar report from Tim trevino RN Patient is resting comfortably with no acute distress noted: 118/63 55 14 98% (2LNC) 98.6 and no pain/discomfort at this time. PICC line noted to left upper arm, single lumen. Patency verified with flush/blood return. Najera catheter noted with approx 200ml light yellow urine. Introduced myself, updated whiteboard, discussed plan of care. Bed to lowest position, 3 side rails up, call light within reach, bed alarm activated. Will continue to monitor patient.
[2017-09-11] MEDS: LEVOFLOXACIN 500 MG/D5W 100 ML IV SCH (19:38)
[2017-09-11] MEDS: MIRTAZAPINE 15 MG TABLET PO SCH (20:32)
[2017-09-11] MEDS: CHOLECALCIFEROL (VITAMIN D3) 2,000 UNIT TABLET PO SCH (20:32)
--- NOTE | 2017-09-11 21:23 | NUR ---
ROUNDS Patient is resting, eyes closed with no shortness of breath noted. Respirations are equal/non-labored; 16min. 2LNC applied and saturating 98%. PICC line dressing is clean/dry/intact, saline locked. Bed to lowest position, 3 side rails up, call light within reach, bed alarm activated. Will continue to monitor patient.
--- NOTE | 2017-09-11 22:50 | NUR ---
Patient called and would like to be repositioned. Saw patient and repositioned to her comfort. She does not need anything at this time. Bed to lowest position, 3 side rails up, call light within reach, bed alarm activated. Will continue to monitor patient.
--- NOTE | 2017-09-11 23:30 | NUR ---
ROUNDS Patient is resting, eyes closed with no acute distress noted. Respirations non-labored and equal and 15/min. 2LNC applied and saturating 97%. PICC line dressing is clean/dry/intact, saline locked. Bed to lowest position, 3 side rails up, call light within reach, bed alarm activated. Will continue to monitor patient.
--- NOTE | 2017-09-11 23:36 | NUR ---
BLOOD GLUCOSE : 117 (No correction needed per sliding scale)
[2017-09-12 00:02] VITALS: BP_SYST 105
--- NOTE | 2017-09-12 00:19 | NUR ---
Patient called and would like to be repositioned. Saw patient and repositioned to her comfort. She complains of being cold, provided warm blanket for comfort. She does not need anything at this time. Bed to lowest position, 3 side rails up, call light within reach, bed alarm activated. Will continue to monitor patient.
--- NOTE | 2017-09-12 01:00 | NUR ---
-Wound care done by uriel TITUS
--- NOTE | 2017-09-12 02:40 | NUR ---
ROUNDS Patient is resting, eyes closed but easily arouses to light stimulation. Symmetric rise and fall of chest with non-labored respirations; 16/min. 2LNC applied/flowing. PICC line dressing is clean/dry/intact, saline locked. Bed to lowest position, 3 side rails up, call light within reach, bed alarm activated. Will continue to monitor patient.
--- NOTE | 2017-09-12 04:30 | NUR ---
ROUNDS Patient is resting, eyes closed with no acute distress noted. Respirations non-labored and equal and 14/min. 2LNC applied and saturating 99%. PICC line dressing is clean/dry/intact, saline locked. Bed to lowest position, 3 side rails up, call light within reach, bed alarm activated. Will continue to monitor patient.
[2017-09-12] MEDS: FUROSEMIDE 40 MG/4 ML VIAL IVP SCH ×2 (05:16→17:31)
--- NOTE | 2017-09-12 06:18 | NUR ---
ROUNDS Patient is a/o x4, resting in bed. Respirations non-labored and equal and 17/min. 2LNC applied/flowing. PICC line dressing is clean/dry/intact, saline locked, patency verified. Bed to lowest position, 3 side rails up, call light within reach, bed alarm activated. Will continue to monitor patient.
--- NOTE | 2017-09-12 07:25 | NUR ---
CLOSING NOTES Bedside sbar report given to Deanna RN. Patient is resting, eyes closed and arouses to light stimulation. All needs/interventions/expectations met by nightshift RN. Transfer of care successful.
--- NOTE | 2017-09-12 07:34 | NUR ---
opening note bedside report received, pt awake alert, having breakfast at this time. no distress noted. safety maintained.
[2017-09-12 08:00] VITALS: BP_SYST 141
[2017-09-12] MEDS: MILK OF MAGNESIA 30 ML UDC PO SCH ×2 (09:00→10:02)
[2017-09-12] MEDS: FOLIC ACID 1 MG TABLET PO SCH (10:02)
[2017-09-12] MEDS: MULTIVITAMINS TAB 1 TABLET PO SCH (10:02)
[2017-09-12] MEDS: LORATADINE 10 MG TABLET PO SCH (10:02)
[2017-09-12] MEDS: GABAPENTIN 100 MG CAPSULE PO SCH ×2 (10:02→21:07)
[2017-09-12] MEDS: POTASSIUM CHLORIDE 10 MEQ TAB.PRT.SR PO SCH (10:02)
[2017-09-12] MEDS: ASCORBIC ACID 500 MG TABLET PO SCH (10:02)
[2017-09-12] MEDS: PREDNISONE 5 MG TABLET PO SCH (10:03)
[2017-09-12] MEDS: CARVEDILOL 12.5 MG TABLET (COREG) PO SCH ×2 (10:03→21:07)
[2017-09-12] MEDS: DILTIAZEM HCL 60 MG TABLET PO SCH (10:03)
[2017-09-12] MEDS: DIGOXIN 0.125 MG TABLET PO SCH (10:04)
[2017-09-12] MEDS: APIXABAN 2.5 MG TABLET PO SCH ×2 (10:16→21:05)
--- NOTE | 2017-09-12 10:16 | NUR ---
AM MEDS MORNING MEDS GIVEN AT THIS TIME, PT TOLERATED WELL WITH WATER 1 PILL AT A TIME. SAFETY MAINTAINED. PT TAKEN TO HAVE A CT OF CHEST AT THIS TIME. SAFETY MAINTAINED. Addendum: 09/12/17 at 1020 by Deanna Perez RN PT REFUSED MILK OF MAGNJOSE RAUL
--- NOTE | 2017-09-12 11:40 | NUR ---
BLOOD SUGAR BLOOD SUGAR CHECKED 103- NO COVERAGE NEEDED.
[2017-09-12 12:00] VITALS: BP_SYST 118
--- NOTE | 2017-09-12 13:00 | NUR ---
rounds pt resting daughter at bedside, no distress noted.
--- NOTE | 2017-09-12 14:17 | NUR ---
Dietitian Recommendations *Recommend CCHO w/ Vijya BID and Glucerna TID. Oral supplements will provide 900 kcal and 35 g protein daily. Please see Nutritional Assessment for details. ILA, RD
[2017-09-12 16:53] VITALS: BP_SYST 105
[2017-09-12] MEDS: GENTAMICIN 120 MG/ ISO-OSM 100 ML PREMIX IV SCH (17:30)
--- NOTE | 2017-09-12 17:40 | NUR ---
MED PASS BLOOD SUGAR CHECKED 138 NO COVERAGE NEEDED. IVPB GENT HUNG AT THIS TIME. LASIX IVP GIVEN WELL.
[2017-09-12] MEDS: LEVOFLOXACIN 500 MG/D5W 100 ML IV SCH (18:48)
--- NOTE | 2017-09-12 18:49 | NUR ---
med pass ivpb aj otto at this time
--- NOTE | 2017-09-12 19:10 | NUR ---
OPENING NOTES Late entry due to patient care. Bedside report received from day shift nurse. Patient received AOx4, lying in bed resting at this time. No s/s of acute distress noted. Breathing is even and unlabored. Nasal canula attached properly, on 2L of oxygen. IVF infusing well. Call light within reach. Bed alarm is on. Bed is locked and at lowest position. Will continue to monitor
--- NOTE | 2017-09-12 19:11 | NUR ---
closing note all needs met through shift, safety maintained, bedside report given to criminal justice professor rn valorie.
[2017-09-12 20:00] VITALS: BP_SYST 113
--- NOTE | 2017-09-12 21:00 | NUR ---
MEDPASS/REFUSED WOUNDCARE Medpass conducted at this time. Patient refused to have wound care conducted at this time for her left leg. Patient stated "Not now, I feel tired". Patient denies any pain at this time. No signs of discomfort noted. Chest rise and fall even bilaterally. Nasal canula attached properly. All of patient's needs met at this time. Call light with patient. Bed alarm is on. Bed is locked and at lowest position. Will continue to monitor. Addendum: 09/13/17 at 0025 by Roscoe Hansen RN MEDPASS/REFUSED WOUNDCARE Medpass conducted at this time. Patient refused to have wound care conducted at this time for her *RIGHT* leg. Patient stated "Not now, I feel tired". Patient denies any pain at this time. No signs of discomfort noted. Chest rise and fall even bilaterally. Nasal canula attached properly. All of patient's needs met at this time. Call light with patient. Bed alarm is on. Bed is locked and at lowest position. Will continue to monitor.
[2017-09-12] MEDS: CHOLECALCIFEROL (VITAMIN D3) 2,000 UNIT TABLET PO SCH (21:06)
[2017-09-12] MEDS: MIRTAZAPINE 15 MG TABLET PO SCH (21:07)
--- NOTE | 2017-09-12 23:00 | NUR ---
ROUNDS Patient in bed sleeping at this time. No s/s of acute distress noted. Breathing is even and unlabored. Najera is attached, secured and draining by gravity. Call light with patient. Bed alarm is on. Bed is locked and at lowest position. Will continue to monitor.
[2017-09-12] MEDS: INSULIN REGULAR, HUMAN 100 UNITS/ML, 10 ML VIAL (novoLIN R) SUBCUT PRN (23:33)
[2017-09-13 00:40] VITALS: BP_SYST 111
--- NOTE | 2017-09-13 01:00 | NUR ---
ROUNDS Patient in bed sleeping at this time. NO signs of discomfort noted. Chest rise and fall even bilaterally. Call light with patient. Bed alarm is on. Bed is locked and at lowest position. Will continue to monitor.
--- NOTE | 2017-09-13 03:00 | NUR ---
ROUNDS Patient in bed sleeping at this time. No s/s of acute distress noted. Breathing is even and unlabored. Call light with patient. Bed alarm remains on. Will continue to monitor.
--- NOTE | 2017-09-13 05:00 | NUR ---
MEDPASS/ACCUCHECK Patient in bed resting at this time. No s/s of acute distress. Scheduled medication, Lasix, administered at this time. Accu check conducted, BS at 97, no insulin coverage needed. Patient is warm and dry to touch, no signs of hypoglycemia. Patient denies any pain at this time. Chest rise and fall even bilaterally. Nasal canula attached properly, on 2L of oxygen. Call light with patient. Bed alarm on. Will continue to monitor.
[2017-09-13] MEDS: INSULIN REGULAR, HUMAN 100 UNITS/ML, 10 ML VIAL (novoLIN R) SUBCUT PRN ×2 (05:04→11:57)
[2017-09-13] MEDS: FUROSEMIDE 40 MG/4 ML VIAL IVP SCH (05:05)
--- NOTE | 2017-09-13 06:22 | NUR ---
CLOSING NOTES Patient in bed sleeping at this time. No s/s of acute distress noted. Breathing is even and unlabored. Nasal canula attached properly, on 2L of oxygen. Skin is warm and dry to touch, no signs of hypoglycemia. No active bleeding noted. PICC line dressing intact, clean and dry, site is patent. Wound dressing intact, clean and dry, no drainage or bleeding noted. Najera attached, secured and draining by gravity. Heels offloaded with pillow. All of patient's needs met throughout shift. Patient was turned/repositioned every two hours throughout shift. Fall, safety, and isolation precautions maintained throughout shift. Will continue to monitor until patient care is endorsed to oncoming day shift nurse.
[2017-09-13 07:15] LABS: ALBUMIN 2.1 g/dL (3.4-4.8); CALCIUM 9.2 mg/dL (8.4-11.0); CREATININE 0.81 mg/dL (0.55-1.30); POTASSIUM 3.1 mmol/L (3.5-5.1); TOTAL BILIRUBIN 0.6 mg/dL (0.0-1.0)
[2017-09-13 07:36] LABS: MEAN CORPUSCULAR HEMOGLOBIN 28 pg (27-31); MEAN CORPUSCULAR VOLUME 82 fL (79.0-98.0)
--- NOTE | 2017-09-13 07:40 | NUR ---
Opening Note Patient sitting up in bed, A/ox3 and angry. Patient states "I am ready to go home." Complains of generalized pain and no difficulty breathing on 2L via NC. Vital signs taken, patient angry because blood pressure cuff "squeezes too tight". Extensions of RN, COSMETICS MACHINE OPERATOR and loan teller written on white board. Plan of care discussed with patient. Safety precautions in order, call light in reach bed alarm on.
[2017-09-13 08:01] LABS: HEMATOCRIT 38.3 % (36-48); HEMOGLOBIN 12.9 g/dL (12.0-16.0); RED BLOOD CELL COUNT(AUTO) 4.66 MIL/uL (4.2-6.2)
[2017-09-13 08:02] LABS: MEAN CORPUSCULAR HGB CONC 34 % (32-36); PLATELET COUNT (AUTO) 621 K/uL (130-430); RED CELL DISTRIBUTION WIDTH 16.5 % (9.0-15.0)
[2017-09-13] MEDS: MULTIVITAMINS TAB 1 TABLET PO SCH (08:09)
[2017-09-13] MEDS: LORATADINE 10 MG TABLET PO SCH (08:10)
[2017-09-13] MEDS: FOLIC ACID 1 MG TABLET PO SCH (08:10)
[2017-09-13] MEDS: POTASSIUM CHLORIDE 10 MEQ TAB.PRT.SR PO SCH (08:10)
[2017-09-13] MEDS: PREDNISONE 5 MG TABLET PO SCH (08:10)
[2017-09-13] MEDS: ASCORBIC ACID 500 MG TABLET PO SCH (08:10)
[2017-09-13] MEDS: MILK OF MAGNESIA 30 ML UDC PO SCH (08:10)
[2017-09-13] MEDS: DIGOXIN 0.125 MG TABLET PO SCH (08:13)
[2017-09-13] MEDS: DILTIAZEM HCL 60 MG TABLET PO SCH (08:14)
[2017-09-13] MEDS: CARVEDILOL 12.5 MG TABLET (COREG) PO SCH (08:14)
[2017-09-13] MEDS: GABAPENTIN 100 MG CAPSULE PO SCH (08:14)
[2017-09-13] MEDS: APIXABAN 2.5 MG TABLET PO SCH (08:16)
--- NOTE | 2017-09-13 08:30 | NUR ---
Reposition Patient given bed bath, linens changed and patient repositioned for comfort.
[2017-09-13 08:48] VITALS: BP_SYST 2
[2017-09-13 10:21] LABS: ATYPICAL LYMPHOCYTES % 0 % (0-0); BAND % (MANUAL) 2 % (0-6); LYMPHOCYTES % (MANUAL) 19 % (20-46)
[2017-09-13 10:22] LABS: BASOPHILS % (MANUAL) 0 % (0-2); EOSINOPHILS % (MANUAL) 6 % (0-7); MONOCYTES % (MANUAL) 11 % (0-11)
--- NOTE | 2017-09-13 10:30 | NUR ---
Repositioned Patient repositioned on right side. All belongings in arms reach. Call light in reach and bed alarm on.
--- NOTE | 2017-09-13 12:20 | NUR ---
PATIENT RESTING: Patient resting quietly. No acute distress noted. Vital signs within normal range.
[2017-09-13 12:38] VITALS: BP_SYST 111
--- NOTE | 2017-09-13 13:10 | NUR ---
CERTIFIED DETENTION DEPUTY CALLED [facility] HAS NO ISOLATION BED FOR PATIENT. IF MD ROMERO WOULD VRE IS COLONIZED, THEN PATIENT CAN BE DISCHARGED BACK TO HER REGULAR ROOM. DR MCNAMARA PAGED.
[2017-09-13] MEDS ORDERED: LEVO500T20 PO (13:12)
[2017-09-13] MEDS ORDERED: FURO-149 PO (13:12)
[2017-09-13] MEDS ORDERED: POTA20TA83 PO (13:13)
--- NOTE | 2017-09-13 14:00 | NUR ---
DR MCNAMARA CALLED BACK STATES HE WILL PLACE AN ORDER FOR PATIENT TO BE DISCHARGED WITH VRE OF WOUND COLONIZED. STATES TO REMOVE PICC LINE PRIOR TO DISCHARGE.
[2017-09-13 14:02] VITALS: BP_SYST 111
--- NOTE | 2017-09-13 14:50 | NUR ---
SURFBOARD MAKER CALLED STATES TO SEND NEW DISCHARGE ORDER TO [facility] TO BE DISCHARGED TO PREVIOUS ROOM. NEW DISCHARGE ORDER FAXED TO NUMBER FOR LINDA AT [facility].
--- NOTE | 2017-09-13 15:24 | NUR ---
ARRANGED AMBULANCE ARRANGED TRANSPORTATION WITH [facility], . SPOKE WITH VICTOR M AND AMBULANCE WILL ARRIVE AT 1600.
--- NOTE | 2017-09-13 15:44 | NUR ---
AMBULANCE ON WILL CALL [facility], , ARRANGEMENT CHANGED TO WILL CALL.
[2017-09-13 16:14] VITALS: BP_SYST 105
--- NOTE | 2017-09-13 16:26 | NUR ---
UPDATED ART CRITIC ART CRITIC FOR PATIENT ARRANGED FOR 1729 WITH [facility]. SPOKE WITH VICTOR M.
--- NOTE | 2017-09-13 16:42 | NUR ---
REPORT GIVEN TO ARIELA HUGHES AT [facility]. ALL QUESTIONS AND CONCERNS ADDRESSED. PATIENT WILL BE TRANSFERRED TO ROOM 11A VIA [facility].
--- NOTE | 2017-09-13 16:58 | NUR ---
PT TRANSFERRED Report given to Floyd vila [facility]. Transfer packet with Transfer Orders and Medication Reconciliation form given to EMT with report. Exitcare provided. [facility] ID band removed, replaced with ID band with pt's name and . Patient refused PICC line removal. All belongings sent with patient. Patient left floor via gurney escorted by EMT in no distress.
== END 2017-09-13 16:58 | DRG 871 ==
LOC: SED 13:37 → STU 16:54 → SMU 09-13 10:17
PROVIDERS: ADMIT Internal Medicine Hospice and Palliative Medicine; ATTEND Internal Medicine Hospice and Palliative Medicine
DX: A41.9 Sepsis, unspecified organism (principal); J96.01 Acute respiratory failure with hypoxia; J18.9 Pneumonia, unspecified organism; I50.33 Acute on chronic diastolic (congestive) heart failure; N39.0 Urinary tract infection, site not specified; M33.20 Polymyositis, organ involvement unspecified; L03.116 Cellulitis of left lower limb; L97.929 Non-pressure chronic ulcer of unspecified part of left lower leg with unspecified severity; J44.1 Chronic obstructive pulmonary disease with (acute) exacerbation; J44.0 Chronic obstructive pulmonary disease with (acute) lower respiratory infection; M35.3 Polymyalgia rheumatica; I48.2 Chronic atrial fibrillation; I11.0 Hypertensive heart disease with heart failure; G89.29 Other chronic pain; E11.622 Type 2 diabetes mellitus with other skin ulcer; M19.90 Unspecified osteoarthritis, unspecified site; Z88.5 Allergy status to narcotic agent; Z88.0 Allergy status to penicillin; Z88.2 Allergy status to sulfonamides; Z88.8 Allergy status to other drugs, medicaments and biological substances; Z91.048 Other nonmedicinal substance allergy status; Z79.899 Other long term (current) drug therapy; Z86.718 Personal history of other venous thrombosis and embolism; Z86.711 Personal history of pulmonary embolism; Z74.01 Bed confinement status; Z90.49 Acquired absence of other specified parts of digestive tract; Z79.01 Long term (current) use of anticoagulants; Z87.440 Personal history of urinary (tract) infections; Z90.81 Acquired absence of spleen
CPT/HCPCS: 36415; 36600; 71045; 71250-TC; 80053; 81000-TC; 82803-TC; 82962; 83036; 83605; 83690-TC; 83880; 84484; 85007; 85025; 85027; 85610-TC; 85730-TC; 87040-TC; 87081; 87086; 93005; 94640; 94760; J1580; J1815; J1940; J1956; J7512; J7620